=== PATIENT | male | born 1995 | race Caucasian/White ===

== ENCOUNTER 2023-05-15 08:45 | Inpatient (IN) | payer OTHER, SELFPAY ==
--- NOTE | ~2023-05-15 | CT_ITS ---
EXAMINATION: CT ABDOMEN AND PELVIS WITH CONTRAST CLINICAL INFORMATION: Diffuse abdominal pain with bloating and question of small bowel obstruction COMPARISON: None available. TECHNIQUE: Multidetector volumetric images were obtained from the superior aspect of the liver through the pubic symphysis following administration 85 mL of Omnipaque 350 intravenous contrast. Sagittal and coronal reformatted images were obtained on the technologist's workstation. Oral contrast: No This CT examination was performed using dose optimization techniques as appropriate, variously including the following: *Automated exposure control *Adjustment of mA and/or kV according to patient size (this includes techniques or standardized protocols for targeted exams where dose is matched to indication/reason for exam; i.e. extremities or head) *Use of iterative reconstruction technique DLP: 465 mGy-cm FINDINGS: LUNG BASES: The visualized lung bases are unremarkable. LIVER, GALLBLADDER, AND BILIARY TREE: The liver is normal in size, shape, and attenuation. No focal hepatic lesion or biliary ductal dilatation is present. The gallbladder is unremarkable with no evidence of radiopaque gallstones, gallbladder wall thickening, or obvious pericholecystic inflammatory changes. PANCREAS: Unremarkable. SPLEEN: Spleen is enlarged measuring 15.6 cm in greatest transverse dimension. ADRENAL GLANDS: Unremarkable. KIDNEYS AND URETERS: The kidneys are normal in size, shape, and attenuation. No hydronephrosis, hydroureter, or calculi seen. No perinephric stranding. BLADDER: Unremarkable. GASTROINTESTINAL TRACT: Moderate to large amount of stool remains in the colon. There is marked dilatation of more proximal small bowel seen with loops measuring as large as 5 cm in diameter. The distal ileal loops are all decompressed with a normal-appearing terminal ileum. In the left mid abdomen, there is a suture line seen which is probably the site of obstruction ([id number] and 5:20). A small amount of free fluid is present in the left lateral abdomen ABDOMINAL WALL: No significant hernia is appreciated. LYMPH NODES: No retroperitoneal lymphadenopathy. VASCULAR: Unremarkable. There is a circumaortic left renal vein. PELVIC VISCERA: The prostate and seminal vesicles are unremarkable. OSSEOUS STRUCTURES: Unremarkable. The SI joints appear normal. CT/CT abdomen pelvis w IV con IMPRESSION: 1. Small bowel obstruction with transition zone in the left mid abdomen. 2. Splenomegaly. Fleischner guidelines were followed.
--- NOTE | ~2023-05-15 | XR_ITS ---
EXAMINATION: XR CHEST CLINICAL INFORMATION: Small bowel obstruction. COMPARISON: None available. TECHNIQUE: Frontal view of the chest was obtained. FINDINGS: The lung volumes are relatively low. The cardiomediastinal silhouette is within normal limits. There appears to be minimal atelectasis at the left lung base. The lungs are otherwise clear. There are no significant pleural effusions. A gastric tube extends below the diaphragm into the upper abdomen. Tip of the gastric tube is not seen. Dilated small bowel loops are noted. XR/XR chest 1V IMPRESSION: Low lung volume slightly limits evaluation. There appears to be minimal atelectatic change at the left lung base. Gastric tube extends below the diaphragm into the left upper abdomen. Dilated small bowel loops seen within the upper abdomen
--- NOTE | ~2023-05-15 | XR_ITS ---
EXAMINATION: XR ABDOMEN KUB CLINICAL INDICATION: Small bowel obstruction follow-up. COMPARISON: Chest x-ray of May 15, [address] abdomen of May 15, 2023. TECHNIQUE: AP view of the abdomen. FINDINGS: Enteric catheter is seen within the stomach. There is contrast seen throughout the nondilated colon which has a moderate amount of formed stool present. No pneumatosis intestinalis is seen. There has been improvement in the small bowel dilatation compared to prior day's study. There remain some distended loops of small bowel measuring up to 5 cm in diameter. Suture line is seen within the lower left abdomen. XR/XR KUB IMPRESSION: Improvement but continued dilatation of small bowel loops. Decompressed colon.
[2023-05-15 08:59] VITALS: BP 115/71; PULSE 83; RESP 16; TEMP 36.8; O2SAT 99; BMI 25.4
--- OUTSIDE RECORDS SUMMARY | 2023-05-15 09:05 | XMS_ITS | Continuity of Care Document ---
Author Name Unknown Organization [facility] ter Address [address] [place] [phone]- Care Team Providers Care Inspector Wire Products Name Role Phone Sydnee TRIPLETT, Shane Morrison Primary Care Physician [phone] [facility]counter [facility] Date[facility]): 06/[facility] - 06/01/[address] [address]- [facility] Discharge Disposition: A-D/C Home Attending Physician: Serafin Kumar MD Admitting Physician: Serafin Kumar MD Referring Physician: Serafin Kumar MD Allergies, Adverse Reactions, Alerts Substance Reaction Severity Status NKA Active Immunizations Given and Recorded Vaccine Date Status Refusal Reason meningococcal group B vaccine 1 12/02/17 Given meningococcal group B vaccine 2 12/12/16 Given tetanus-diphtheria toxoids (Td) 3 12/02/17 Given influenza virus vaccine, inactivated 4 03/08/15 Gi vladimir influenza virus vaccine, inactivated 02/27/14 Give n influenza virus vaccine, inactivated 03/02/13 Give n influenza virus vaccine, inactivated 5 04/05/12 Gi vladimir Human Papillomavirus Vaccine 6 11/09/14 Given Human Papillomavirus Vaccine 04/27/14 Given Human Papillomavirus Vaccine 03/16/13 Given Meningococcal Conjugate Vaccine 04/27/14 Given Meningococcal Conjugate Vaccine 7 05/10/08 Given Hepatitis A Pediatric Vaccine 8 04/05/12 Given Hepatitis A Pediatric Vaccine 9, 10 03/11/12 Given hepatitis B pediatric vaccine 11 04/05/12 Given pneumococcal 23-valent vaccine 04/05/12 Given influenza virus vaccine, live 12, 13 03/11/12 Give n influenza virus vaccine, live 14 03/06/11 Given influenza virus vaccine, live 15 02/27/10 Given Hepatitis A Vaccine (oldterm) 16 02/27/10 Given influ virus vac, H1N1, live(oldterm) 17 03/21/09 G iven Tet/Diphth/Acel, Pertussis (oldterm) 18 05/10/08 G iven Poliovirus Vaccine, Inactivated 03/31/02 Given Poliovirus Vaccine, Inactivated 09/19/98 Given Poliovirus Vaccine, Inactivated 97 Given Poliovirus Vaccine, Inactivated 97 Given Diphth/Pertussis,Acel/Tetanus (oldterm) 03/31/02 G iven Diphth/Pertussis,Acel/Tetanus (oldterm) 09/19/98 G iven Diphth/Pertussis,Acel/Tetanus (oldterm) 97 G iven Diphth/Pertussis,Acel/Tetanus (oldterm) 97 G iven Diphth/Pertussis,Acel/Tetanus (oldterm) 97 G iven Measles/Mumps/Rubella Virus Vaccine 04/01/01 Given Measles/Mumps/Rubella Virus Vaccine 06/20/98 Given Haemophilus B Conj Vaccine (oldterm) 06/20/98 Give n Haemophilus B Conj Vaccine (oldterm) 97 Give n Haemophilus B Conj Vaccine (oldterm) 97 Give n Haemophilus B Conj Vaccine (oldterm) 97 Give n Varicella Virus Vaccine 04/20/98 Given Hepatitis B Vaccine (old term) 02/02/98 Given Hepatitis B Vaccine (old term) 97 Given Hepatitis B Vaccine (old term) 97 Given 1Result Comment: [12/02/2017] David Kraft MD 2Result Comment: [12/12/2016] Dr. Randhawa 3Result Comment: [12/02/2017] David Kraft MD 4Result Comment: [03/08/2015] Dr. Valle 5Admin Note: private vis given screening questions negative 6Result Comment: [11/09/2014] Ordered by Dr. Nivia Fuentes 9 7Admin Note: MENACTRA VIS 06/23/07 GIVEN 8Admin Note: vis given 2011 9Result Comment: not given 10Admin Note: VIS 08/14/05 GIVEN Hep A 11Admin Note: vis given 2011 12Result Comment: not given 13Admin Note: Private--VIS 12/19/10 given---screening questions negative 14Admin Note: VIS 12/2009 given Screening questions negative 15Admin Note: flumist vis given 01/03/10 16Admin Note: vis given 12/11/06 17Admin Note: H1N1 mist screening questions negative 18Admin Note: TDAP VIS 12/05/05 GIVEN Medications adapalene 0.1% topical gel 1 application, Topically, Daily at bedtime, # 45 Gm, 0 Refills, Maintenance, 03/03/15 12:10:04, Gel, 1 application Topically Daily at bedtime Start Date: 03/03/15 Status: Ordered clindamycin topical 1% lotion See Instructions, 1 applicator Topically Dailyin morning after washing, # 60 mL, 1 Refills, Maintenance, 03/04/15 9:22:00, 1 applicator Topically Dailyin morning after washing Start Date: 03/04/15 Status: Ordered folic acid 1 mg oral tablet 3 mg, 3, tablet, By Mouth, Every Saturday, for 30 days, # 15 tablet, Refills 6, Tot. Refills 6, Hard Stop 06/23/19 17:11:54 EST, 11/25/18 17:11:54 EDT, Route to Pharmacy Electronically, [id number], [facility]/pharmacy #[id number] Start Date: 11/25/18 Stop Date: 06/23/19 Status: Ordered folic acid 1 mg oral tablet 1 mg, 1, tablet, By Mouth, Daily, # 30 tablet, Refills 0, Tot. Refills 0, Maintenance, 11/25/18 17:13:05 EDT, Route to Pharmacy Electronically, [id number], [facility]/pharmacy #[id number] Start Date: 11/25/18 Status: Ordered Golytely - oral powder for reconstitution 240 mL, By Mouth, Every 10 minutes, # 4,000 mL, 0 Refills, Maintenance, 11/25/18 17:33:01 EDT, REC Powder, 240 mL By Mouth Every 10 minutes Start Date: 11/25/18 Status: Ordered infliximab 100 mg intravenous powder for injection = 900 mg, IV Infusion, Once, # 9 vials, 3 Refills, Soft Stop, 11/26/18 10:05:00 EDT, Ship to inpatient pharmacy at [facility] Start Date: 11/26/18 Status: Ordered methotrexate 2.5 mg oral tablet 5 tablet = 12.5 mg, By Mouth, Every week, # 65 tablet, 3 Refills, Maintenance, 05/08/19 14:16:00 EST, Tablet, 179.5, cm, 11/25/18 16:12:04 EDT, Height, 89, kg, 10/06/18 11:55:24 EDT, Dry Weight Start Date: 05/08/19 Status: Ordered Vitamin B Complex with C, Folic Acid and Zinc oral tablet 1 tablet, By Mouth, Daily, # 100 tablet, 0 Refills, Maintenance, 11/25/18 17:12:57 EDT, Tablet, 1 tablet By Mouth Daily Start Date: 11/25/18 Status: Ordered Vitamin D 18042 iu oral capsule 50,000 International_Units, 1, capsule, By Mouth, Every week, # 12 capsule, Refills 2, Tot. Refills2, Maintenance, 09/25/17 14:23:01 EDT, Route to Pharmacy Electronically, [id number], [facility][id number] Start Date: 09/25/17 Status: Ordered Vitamin D3 2000 intl units oral capsule 1 capsule = 2,000 International_Units, By Mouth, Daily, # 90 capsule, 3 Refills, Maintenance, 08/05/18 9:00:59 EDT Start Date: 08/05/18 Status: Ordered Problem List Condition Effective Dates Status Health Status Inform ant Anemia(Confirmed) Active Crohns disease(Confirmed) 1 Active Acute recurrent tonsillitis(Confirmed) Active 1s/p ileal resection in 2013 Procedures Procedure Date Related Diagnosis Body Site Status Colonoscopy 06/01/19 Completed Vital Signs Most recent to oldest [Reference Range]: 1 2 3 Height 180.3 cm (06/01/19 7:26 AM) Oxygen Saturation [94-100 %] 99 % (06/01/19 8:40 AM) 100 % (06/01/19 8:33 AM) 100 % (06/01/19 7:26 AM) Pulse Rate [55-90 bpm] 73 bpm (06/01/19 7:26 AM) Blood Pressure [90-138/55-84 mm Hg] 97/68mm Hg (06/01/19 8:40 AM) 101/65mm Hg (06/01/19 8:33 AM) 118/71mm Hg (06/01/19 7:26 AM) Respiratory Rate [16-30 br/min] 20 br/min (06/01/19 8:40 AM) 16 br/min (06/01/19 8:33 AM) 20 br/min (06/01/19 7:26 AM) Temperature [96.8-100.4 DegF] 97.7 DegF (06/01/19 7:26 AM) Mode of Delivery (Oxygen) Room air (06/01/19 8:40 AM) Room air (06/01/19 8:33 AM) Room air (06/01/19 7:26 AM) Blood pressure sites Arm, left (06/01/19 8:40 AM) Arm, left (06/01/19 8:33 AM) Arm, right (06/01/19 7:26 AM) Temperature Route Temporal (06/01/19 7:26 AM) Dry Weight 86.2 kg (06/01/19 7:26 AM) Dry Weight Obtained Via Patient/family s tated (06/01/19 7:26 AM) Social History Social History Type Response Smoking Status Never smoker; Tobacc o user in household: No entered on: 08/03/14 Sex
--- OUTSIDE RECORDS SUMMARY | 2023-05-15 09:05 | XMS_ITS | Continuity of Care Document ---
Author Name Unknown Organization [facility] ter Address [address] [place] [address]- Care Team Providers Care Gps Field Data Collector Name Role Phone Suzanne TRIPLETT, Edmar Holden Primary Care Physician [facility] Date[facility]): 09/12/21 - 02/05/[address] [id number] Attending Physician: Jefferson Ma MD Admitting Physician: Jefferson Ma MD Referring Physician: Jefferson Ma MD Allergies, Adverse Reactions, Alerts No Known Allergies Immunizations Given and Recorded Vaccine Date Status Refusal Reason influenza virus vaccine, inactivated 04/04/21 Give n influenza virus vaccine, inactivated 02/29/20 Jack rded influenza virus vaccine, inactivated 06/02/19 Give n influenza virus vaccine, inactivated 1 03/08/15 Gi vladimir influenza virus vaccine, inactivated 02/27/14 Give n influenza virus vaccine, inactivated 03/02/13 Give n influenza virus vaccine, inactivated 2 04/05/12 Gi vladimir SARS-CoV-2 (COVID-19) mRNA BNT-162b2 vac 01/16/21 Recorded SARS-CoV-2 (COVID-19) mRNA BNT-162b2 vac 07/27/20 Recorded SARS-CoV-2 (COVID-19) mRNA BNT-162b2 vac 07/05/20 Recorded meningococcal group B vaccine 3 12/02/17 Given meningococcal group B vaccine 4 12/12/16 Given tetanus-diphtheria toxoids (Td) 5 12/02/17 Given Human Papillomavirus Vaccine 6 11/09/14 Given Human [...] Vaccine (old term) 97 Given 1Result Comment: [03/08/2015] Dr. Valle 2Admin Note: private vis given screening questions negative 3Result Comment: [12/02/2017] David Kraft MD 4Result Comment: [12/12/2016] Dr. Randhawa 5Result Comment: [12/02/2017] David Kraft MD 6Result Comment: [11/09/2014] Ordered by Dr. Nivia [...] 18Admin Note: TDAP VIS 12/05/05 GIVEN Medications Remicade 100 mg intravenous powder for injection See Instructions, INFUSE 900MG INTRAVENOUSLY EVERY 6 WEEKS (GIVEN AT [facility]FUSION CLINIC, DISCARD UNUSED), # 9 each, 6 Refills, Maintenance, 03/08/21 9:14:00 EDT, [facility], 180, cm, 06/18/20 15:07:00 EST, Height, 82.5, kg, 09... Start Date: 03/08/21 Status: Ordered Vitamin D3 2000 intl units oral capsule 1 capsule = 2,000 International_Units, By Mouth, Daily, # 90 capsule, 3 Refills, Maintenance, 08/31/20 13:32:00 EDT, [id number], 180, cm, 06/18/20 15:07:00 EST, Height, 80.6, kg, 08/06/20 10:35:00 EST, Dry Weight Start Date: 08/31/20 Status: Ordered Problem List Condition Effective Dates Status Health Status Inform ant Anemia(Confirmed) Active COVID-19(Confirmed) Active Crohns disease(Confirmed) 1 Active IBD (inflammatory bowel disease)(Confirmed) Active Health care maintenance(Confirmed) Active Acute recurrent tonsillitis(Confirmed) Active 1s/p ileal resection in 2013 Social History Social History Type Response Smoking Status Never smoker; Tobacc o user in household: No entered on: 08/03/14 Sex Care Team Personnel Name: Suzanne TRIPLETT, Edmar Holden Address: [address] [place] [address]
--- OUTSIDE RECORDS SUMMARY | 2023-05-15 09:05 | XMS_ITS | Continuity of Care Document ---
Author Name Unknown Organization [facility] [address] [place] [address]- Care Team Providers Care Geographic Information Systems Manager Name Role Phone Shane Randhawa MD Primary Care Physician [phone] Encounter [facility] Date(s): 06/02/19 - 06/09/19 [facility] [address] [place] [address]- [facility] Attending Physician: Shane Randhawa MD Allergies, Adverse Reactions, Alerts Substance Reaction Severity Status NKA Active Immunizations Given and Recorded Vaccine Date Status Refusal Reason influenza virus vaccine, inactivated 06/02/19 Give n influenza virus vaccine, inactivated 1 03/08/15 Gi vladimir influenza virus vaccine, inactivated 02/27/14 Give n influenza virus vaccine, inactivated 03/02/13 Give n influenza virus vaccine, inactivated 2 04/05/12 Gi vladimir meningococcal group B vaccine 3 12/02/17 Given [...] vaccine 04/05/12 Given influenza virus vaccine, live , 13 03/11/12 Give n influenza virus vaccine, [...] 11/25/18 17:11:54 EDT, Route to Pharmacy Electronically, [id number], [facility]/pharmacy #[id number] Start Date: 11/25/18 Stop Date: 06/23/19 Status: Ordered folic acid 1 mg oral tablet 1 mg, 1, tablet, By Mouth, Daily, # 30 tablet, Refills 0, Tot. Refills 0, Maintenance, 11/25/18 17:13:05 EDT, Route to Pharmacy Electronically, [id number], [facility]/pharmacy #[id number] Start Date: 11/25/18 Status: Ordered Golytely [...] 10:05:00 EDT, Ship to inpatient pharmacy at [facility] Start Date: 11/26/18 Status: Ordered methotrexate 2.5 [...] Start Date: 11/25/18 Status: Ordered Vitamin D 59310 iu oral capsule 50,000 International_Units, 1, capsule, By Mouth, Every week, # 12 capsule, Refills 2, Tot. Refills2, Maintenance, 09/25/17 14:23:01 EDT, Route to Pharmacy Electronically, [id number], [id number] Start Date: 09/25/17 Status: Ordered Vitamin D3 2000 intl units oral capsule 1 capsule = 2,000 International_Units, By Mouth, Daily, # 90 capsule, 3 Refills, Maintenance, 08/05/18 9:00:59 EDT Start Date: 08/05/18 Status: Ordered Problem List Condition Effective Dates Status Health Status Inform ant Anemia(Confirmed) Active Crohns disease(Confirmed) 1 Active Acute recurrent tonsillitis(Confirmed) Active 1s/p ileal resection in 2013 Vital Signs Most recent to oldest [Reference Range]: 1 Height 178.7 cm (06/02/19 11:39 AM) Weight 90.9 kg (06/02/19 11:39 AM) Pulse Rate [55-90 bpm] 98 bpm *H* (06/02/19 11:39 AM) Body Mass Index [18.5-24.99] 28.47 *H* (06/02/19 11:39 AM) Blood Pressure [90-138/55-84 mm Hg] 110/ 72mm Hg (06/02/19 11:39 AM) Blood pressure sites Arm, left (06/02/19 11:39 AM) Dry Weight 90.9 kg (06/02/19 11:39 AM) Weight Obtained Via Standing scale (06/02/19 11:39 AM) Dry Weight Obtained Via Standing scale (06/02/19 11:39 AM) Social History Social History Type Response Smoking Status Never smoker; Tobacc o user in household: No entered on: 08/03/14 Sex
--- OUTSIDE RECORDS SUMMARY | 2023-05-15 09:06 | XMS_ITS | Continuity of Care Document ---
Author Name Unknown Organization [facility] Address [address] [place] [address]- Care Team Providers Care Machine Precision Engraver Name Role Phone Edmar Palacios MD Primary Care Physician Encounter [facility] Date(s): 06/04/22 - 07/04/22 [facility] [address] [place] [address]- [place] Allergies, Adverse Reactions, Alerts No Known Allergies Immunizations Given and Recorded Vaccine Date Status Refusal Reason influenza virus vaccine, inactivated 04/03/22 Jack rded influenza virus vaccine, inactivated 04/04/21 Give n influenza virus vaccine, inactivated 02/29/20 Jack rded influenza virus vaccine, inactivated 06/02/19 Give n influenza virus vaccine, inactivated 1 03/08/15 Gi vladimir influenza virus vaccine, inactivated 02/27/14 Give n influenza virus vaccine, inactivated 03/02/13 Give n influenza virus vaccine, inactivated 2 04/05/12 Gi vladimir SARS-CoV-2 mRNA ([id number]) vax 10/24/21 Recorded SARS-CoV-2 (COVID-19) mRNA BNT-162b2 vac 01/16/21 Recorded [...] injection See Instructions, INFUSE 900MG INTRAVENOUSLY EVERY 8 WEEKS (GIVEN AT INFUSION CLINIC, DISCARD UNUSED), # 9 each, 6 Refills, Maintenance, 03/14/22 9:09:00 EDT, [facility]), 180, cm, 07/22/21 13:27:00 EST, Height, 77.9,... Start Date: 03/14/22 Status: Ordered Vitamin D3 2000 intl units oral capsule 1 capsule = 2,000 International_Units, By Mouth, Daily, # 90 capsule, 3 Refills, Maintenance, 08/31/20 13:32:00 EDT, [id number], 180, cm, 06/18/20 15:07:00 EST, Height, 80.6, kg, 08/06/20 10:35:00 EST, Dry Weight Start Date: 08/31/20 Status: Ordered Problem List Condition Confirmation Course Effective Dates Status Health St atus Informant Anemia Confirmed Active COVID-19 Confirmed Active Crohns disease 1 Confirmed Active IBD (inflammatory bowel disease) Confirmed Active Health care maintenance Confirmed Active Acute recurrent tonsillitis Confirmed Active 1s/p ileal resection in 2013 Social History Social History Type Response Smoking Status Never smoker; Tobacc o user in household: No entered on: 08/03/14 Sex Patient Care team information Care Team Personnel Name: Miriam Malloy RN Position: S RN Member Role: Primary Care Nurse Name: Earline Moses RN Position: [facility] Onco RN Member Role: Primary Care Nurse Name: Edgar Benitez MD Position: [facility] General Pediatrics MD Member Role: Lifetime Consulting Physician Address: Address: [address] [facility] [place] [address]- [place] Name: Court Holliday Anabela Position: [facility] [place] Member Role: Lifetime Consulting Physician Name: Katherine Morales RN Position: [facility] RN Member Role: Primary Care Nurse Name: Soledad Freitas RN Position: [facility] RN Member Role: Primary Care Nurse Name: Raoul Sultana MD Position: [facility] General Pediatrics MD Member Role: Lifetime Consulting Physician Address: Address: [address] [facility] [place] [address]- [place] Name: Mariajose Banerjee RN Position: [facility] RN Member Role: Primary Care Nurse Name: Katie Centeno RN Position: [facility] RN Member Role: Primary Care Nurse Name: Jin Sotelo RN Position: [facility] RN Member Role: Primary Care Nurse Name: Edmar Palacios MD Position: [facility] Primary Care Physician Member Role: PCP Address: Address: [address] [place] [address]- [place] Name: Faisal Butterfield MD Position: [facility] Psychiatry MD Member Role: Lifetime Consulting Physician Address: Address: [address] [place] [address]- Care Team Related Persons Name: TERESO PARNELL Address: [address] [place] [address] Name: KELLIE PARNELL Address: [address] [place] [address] Name: RONDA PARNELL Address: [address] [place] [address] Name: UNKNOWN, UNKNOWN
--- OUTSIDE RECORDS SUMMARY | 2023-05-15 09:06 | XMS_ITS | Continuity of Care Document ---
Author Name Unknown Organization [facility] Address [address] [place] [address]- Care Team Providers Care Monumental Stonemason Name Role Phone Suzanne TRIPLETT, Edmar Holden Primary Care Physician [facility] Date[facility]s): 02/08/23 - 03/10/23 [facility] [address] [place] [address]- [place] Allergies, Adverse Reactions, Alerts No Known [...] inactivated 2 04/05/12 Gi vladimir SARS-CoV-2 mRNA (mvtpnrz-ejdy-yjave) vax 10/24/21 Recorded SARS-CoV-2 (COVID-19) mRNA BNT-162b2 [...] Hepatitis A Pediatric Vaccine 8 04/05/12 Given hepatitis B pediatric vaccine 9 04/05/12 Given pneumococcal 23-valent vaccine 04/05/12 Given influenza virus vaccine, live 10 03/06/11 Given influenza virus vaccine, live 11 02/27/10 Given Hepatitis A Vaccine (oldterm) 12 02/27/10 Given influ virus vac, H1N1, live(oldterm) 13 03/21/09 G iven Tet/Diphth/Acel, Pertussis (oldterm) 14 05/10/08 G iven Poliovirus Vaccine, Inactivated 03/31/02 [...] Nivia Fuentes 9 7Admin Note: MENACTRA VIS 1/28/08 GIVEN 8Admin Note: vis given 2011 9Admin Note: vis given 2011 10Admin Note: VIS 12/2009 given Screening questions negative 11Admin Note: flumist vis given 01/03/10 12Admin Note: vis given 12/11/06 13Admin Note: H1N1 mist screening questions negative 14Admin Note: TDAP VIS 12/05/05 GIVEN Medications Remicade 100 mg intravenous powder for injection See Instructions, INFUSE 900MG INTRAVENOUSLY EVERY 8 WEEKS (GIVEN AT [facility]ION [facility]IC, DISCARD UNUSED), # 9 each, 6 Refills, Maintenance, 03/14/22 9:09:00 EDT, [facility]), 180, cm, 07/22/21 13:27:00 EST, [...] Team Personnel Name: Miriam Malloy RN Position: [facility] RN Member Role: Primary Care Nurse Name: Edgar Bentiez MD Position: [facility] Physician - Pediatrics Member Role: Lifetime Consulting Physician Address: Address: [address] [place] [address] Pediatric Services [place], [place] [address] Name: Court Holliday [place] Position: [facility] CHRISTINA LU Member Role: Lifetime Consulting Physician Name: Katherine Morales RN Position: [facility] RN Member Role: Primary Care Nurse Name: Soledad Freitas RN Position: [facility] RN Member Role: Primary Care Nurse Name: Raoul Sultana MD Position: [facility] General Pediatrics MD Member Role: Lifetime Consulting Physician Address: Address: [address] [facility] [place] [address]- Name: Mariajsoe Banerjee RN Position: [facility] RN Member Role: Primary Care Nurse Name: Earline Jane RN Position: [facility] Onco RN Member Role: Primary Care Nurse Name: Katie Centeno RN Position: [facility] SN RN Member Role: Primary Care Nurse Name: Jin Sotelo RN Position: [facility] RN Member Role: Primary Care Nurse Name: Edmar Palacios MD Position: [facility] Physician - Primary Care Member Role: PCP Address: Address: [address] [place] [address]- Name: Faisal Butterfield MD Position: [facility] Physician - Behavioral Health Member Role: Lifetime Consulting Physician Address: Address: [address] [place] [address]- Care Team Related Persons Name: TERESO PARNELL Address: [address] [place] [address] Name: KELLIE PARNELL Address: [address] [place] [address] Name: RONDA PARNELL Address: [address] [place] [address] Name: UNKNOWN, CHELI
--- OUTSIDE RECORDS SUMMARY | 2023-05-15 09:06 | XMS_ITS | Continuity of Care Document ---
Author Name Unknown Organization [facility] Address [address] [place] [address]- Care Team Providers Care Investment Manager Name Role Phone Edmar Palacios MD Primary Care Physician [facility] Date[facility]): 11/16/20 - 12/16/20 [facility] [address] [place] [address]- Allergies, Adverse Reactions, Alerts Substance Reaction Severity [...] MD 6Result Comment: [11/09/2014] Ordered by Dr. Gonzáles Gardasicyn 9 7Admin Note: MENACTRA VIS 06/23/07 GIVEN [...] 18Admin Note: TDAP VIS 12/05/05 GIVEN Medications folic acid 1 mg oral tablet 1 mg, 1, tablet, By Mouth, Daily, # 30 tablet, Refills 0, Tot. Refills 0, Maintenance, 11/25/18 17:13:05 EDT, Route to Pharmacy Electronically, [id number], [facility]/pharmacy #[id number] Start Date: 11/25/18 Status: Ordered methotrexate 2.5 mg oral tablet 5 tablet = 12.5 mg, By Mouth, Every week, # 65 tablet, 3 Refills, Maintenance, 08/22/20 11:06:00 EDT, Tablet, [facility]/pharmacy #[id number], 180, cm, 06/18/20 15:07:00 EST, Height, 80.6, kg, 08/06/20 10:35:00 EST, Dry Weight Start Date: 08/22/20 Status: Ordered Remicade 100 mg intravenous powder for injection See Instructions, INFUSE 900MG INTRAVENOUSLY EVERY 6 WEEKS (GIVEN AT [facility]ION [facility], DISCARD UNUSED), # 9 each, 6 Refills, Maintenance, 03/08/20 10:45:00 EDT, [facility], 178.7, cm, 10/31/19 10:22:00 EDT, Height, 84.1, kg,... Start Date: 03/08/20 Status: Ordered Vitamin D 69047 iu oral capsule 50,000 International_Units, 1, capsule, By Mouth, Every week, # 12 capsule, Refills 2, Tot. Refills2, Maintenance, 09/25/17 14:23:01 EDT, Route to Pharmacy Electronically, [id number], [facility]/pharmacy #[id number] Start Date: 09/25/17 Status: Ordered Vitamin [...]
--- OUTSIDE RECORDS SUMMARY | 2023-05-15 09:06 | XMS_ITS | Continuity of Care Document ---
Author Name Unknown Organization [facility] Address [address] [place] [address]- Care Team Providers Care Microbiology Professor Name Role Phone Suzanne TRIPLETT, Edmar Holden Primary Care Physician [facility] Date[facility]s): 10/06/21 - 11/05/21 [facility] [address] [place] [address]- [place] Allergies, Adverse Reactions, Alerts No Known [...] 04/05/12 Given influenza virus vaccine, live , 03/11/12 Give n influenza virus vaccine, live [...] 6Result Comment: [11/09/2014] Ordered by Dr. Gonzáles Gardtyler 9 7Admin Note: MENACTRA VIS 06/23/07 GIVEN [...]
--- OUTSIDE RECORDS SUMMARY | 2023-05-15 09:06 | XMS_ITS | Continuity of Care Document ---
Author Name Unknown Organization [facility] Address [address] [place] [address]- Care Team Providers Care Lpn Care Manager Name Role Phone Edmar Palacios MD Primary Care Physician [phone] [facility]counter [facility] Date(s): 08/07/20 - 09/06/20 [facility] [address] [place] [address]- Allergies, Adverse Reactions, Alerts Substance Reaction Severity [...] 11/25/18 17:13:05 EDT, Route to Pharmacy Electronically, [id number], [facility]/pharmacy #[id number] Start Date: 11/25/18 Status: Ordered methotrexate 2.5 mg oral tablet 5 tablet = 12.5 mg, By Mouth, Every week, # 65 tablet, 3 Refills, Maintenance, 08/22/20 11:06:00 EDT, Tablet, [facility]/pharmacy #[id number], 180, cm, 06/18/20 15:07:00 EST, Height, [...] Start Date: 03/08/20 Status: Ordered Vitamin D 96564 iu oral capsule 50,000 International_Units, 1, capsule, By Mouth, Every week, # 12 capsule, Refills 2, Tot. Refills2, Maintenance, 09/25/17 14:23:01 EDT, Route to Pharmacy Electronically, [id number], [facility]/pharmacy #[id number] Start Date: 09/25/17 Status: Ordered Vitamin [...]
--- OUTSIDE RECORDS SUMMARY | 2023-05-15 09:06 | XMS_ITS | Continuity of Care Document ---
Author Name Unknown Organization [facility] Address [address] [place] [address]- Care Team Providers Care Notching Press Operator Name Role Phone Suzanne TRIPLETT, Edmar Holden Primary Care Physician [phone] Encounter [facility] Date(s): 11/21/21 - 12/21/21 [facility] [address] [place] [address]- [place] Allergies, Adverse Reactions, Alerts No Known [...]
--- OUTSIDE RECORDS SUMMARY | 2023-05-15 09:06 | XMS_ITS | Continuity of Care Document ---
Author Name Unknown Organization [facility] Address [address] [place] [address]- Care Team Providers Care Chief Estimator Name Role Phone Edmar Palacios MD Primary Care Physician [phone] Encounter [facility] Date(s): 03/27/21 - 04/26/21 [facility] [address] [place] [address]- Attending Physician: Marek Remy Admitting Physician: AdmtrMarek Referring Physician: Admtr, Ar8 Allergies, Adverse Reactions, Alerts Substance Reaction Severity [...] ant Anemia(Confirmed) Active Crohns disease(Confirmed) 1 Active IBD (inflammatory bowel disease)(Confirmed) Active Health care maintenance(Confirmed) Active Acute recurrent tonsillitis(Confirmed) Active 1s/p ileal resection in 2013 Procedures Procedure Date Related Diagnosis Body Site Status Tonsillectomy Completed [place] tooth extraction C ompleted Social History Social History Type Response Smoking Status Never smoker; Tobacc o user in household: No entered on: 08/03/14 Sex
--- OUTSIDE RECORDS SUMMARY | 2023-05-15 09:06 | XMS_ITS | Continuity of Care Document ---
Author Name Unknown Organization [facility] Address [address] [place] [address]- Care Team Providers Care Airport Representative Name Role Phone Suzanne TRIPLETT, Edmar Holden Primary Care Physician [phone] Encounter [facility] Date(s): 06/06/20 - 07/06/20 [facility] [address] [place] [address] Allergies, Adverse Reactions, Alerts Substance Reaction Severity [...] 18 05/10/08 G iven Poliovirus Vaccine, Inactivated 11/5/02 Given Poliovirus Vaccine, Inactivated 09/19/98 Given Poliovirus [...] 6Result Comment: [11/09/2014] Ordered by Dr. Gonzáles Gardasil 9 7Admin Note: MENACTRA VIS 06/23/07 GIVEN [...] 11/25/18 17:13:05 EDT, Route to Pharmacy Electronically, [id number], [facility]/pharmacy #[id number] Start Date: 11/25/18 Status: Ordered methotrexate 2.5 mg oral tablet 5 tablet = 12.5 mg, By Mouth, Every week, # 65 tablet, 3 Refills, Maintenance, 05/08/19 14:16:00 EST, Tablet, 179.5, cm, 11/25/18 16:12:04 EDT, Height, 89, kg, 10/06/18 11:55:24 EDT, Dry Weight Start Date: 05/08/19 Status: Ordered Remicade 100 mg intravenous powder for injection See Instructions, INFUSE 900MG INTRAVENOUSLY EVERY 6 WEEKS (GIVEN AT INFUSION CLINIC, DISCARD UNUSED), # 9 each, 6 Refills, Maintenance, 03/08/20 10:45:00 EDT, [facility], 178.7, cm, 10/31/19 10:22:00 EDT, Height, 84.1, kg,... Start Date: 03/08/20 Status: Ordered Vitamin D 37412 iu oral capsule 50,000 International_Units, 1, capsule, By Mouth, Every week, # 12 capsule, Refills 2, Tot. Refills2, Maintenance, 09/25/17 14:23:01 EDT, Route to Pharmacy Electronically, [id number], [id number] Start Date: 09/25/17 Status: Ordered Problem List Condition Effective Dates Status Health Status Inform ant Anemia(Confirmed) Active Crohns disease(Confirmed) 1 Active Acute recurrent tonsillitis(Confirmed) Active 1s/p ileal resection in 2013 Social History Social History Type Response Smoking Status Never smoker; Tobacc o user in household: No entered on: 08/03/14 Sex
--- OUTSIDE RECORDS SUMMARY | 2023-05-15 09:06 | XMS_ITS | Continuity of Care Document ---
Author Name Unknown Organization [facility] Address [address] [place] [address]- Care Team Providers Care Mine Inspector Name Role Phone Suzanne TRIPLETT, Edmar Holden Primary Care Physician [facility] Date(s): 09/12/21 - 10/12/21 [facility] [address] [place] [address]- [place] Allergies, Adverse Reactions, Alerts No Known [...]
--- OUTSIDE RECORDS SUMMARY | 2023-05-15 09:06 | XMS_ITS | Continuity of Care Document ---
Author Name Unknown Organization [facility] Address [address] [place] [address]- Care Team Providers Care Spiral Binder Name Role Phone Edmar Palacios MD Primary Care Physician [phone] [facility] Date(s): 09/12/21 - 12/11/[address] [address] Attending Physician: Jefferson Ma MD Admitting Physician: [...]
--- OUTSIDE RECORDS SUMMARY | 2023-05-15 09:06 | XMS_ITS | Continuity of Care Document ---
Author Name Unknown Organization [facility] Address [address] [place] [address]- Care Team Providers Care Regional Airline Pilot Name Role Phone Suzanne TRIPLETT, Edmar Holden Primary Care Physician Encounter [facility] Date(s): 01/12/20 - 05/11/20 [facility] [address] [place] [address]- Attending Physician: Serafin Kumar MD Admitting Physician: Serafin Kumar MD Referring Physician: Shane Randhawa MD Allergies, Adverse Reactions, [...] 02/27/10 Given Hepatitis A Vaccine (oldterm) 16 10/4/10 Given influ virus vac, H1N1, live(oldterm) 17 [...] 11/25/18 17:13:05 EDT, Route to Pharmacy Electronically, [id number], [facility]/pharmacy #[id number] Start Date: 11/25/18 Status: Ordered [...] Start Date: 03/08/20 Status: Ordered Vitamin D 39394 iu oral capsule 50,000 International_Units, 1, capsule, By Mouth, Every week, # 12 capsule, Refills 2, Tot. Refills2, Maintenance, 09/25/17 14:23:01 EDT, Route to Pharmacy Electronically, [id number], [facility]/pharmacy #[id number] Start Date: 09/25/17 Status: Ordered Problem List Condition Effective Dates Status Health Status Inform ant Anemia(Confirmed) Active Crohns disease(Confirmed) 1 Active Acute recurrent tonsillitis(Confirmed) Active 1s/p ileal resection in 2013 Social History Social History Type Response Smoking Status Never smoker; Tobacc o user in household: No entered on: 08/03/14 Sex
--- OUTSIDE RECORDS SUMMARY | 2023-05-15 09:06 | XMS_ITS | Continuity of Care Document ---
Author Name Unknown Organization [facility] Address [address] [place] [address]- Care Team Providers Care Food Preparer Name Role Phone Edmar Palacios MD Primary Care Physician [facility] Date(s): 10/01/20 - 10/31/20 [facility] [address] [place] [address]- Allergies, Adverse Reactions, Alerts Substance Reaction Severity [...] 11/25/18 17:13:05 EDT, Route to Pharmacy Electronically, [id number], [facility]/pharmacy #[id number] Start Date: 11/25/18 Status: Ordered methotrexate 2.5 mg oral tablet 5 tablet = 12.5 mg, By Mouth, Every week, # 65 tablet, 3 Refills, Maintenance, 08/22/20 11:06:00 EDT, Tablet, [facility]/pharmacy #[id number], 180, cm, 06/18/20 15:07:00 EST, [...] Start Date: 03/08/20 Status: Ordered Vitamin D 45731 iu oral capsule 50,000 International_Units, 1, capsule, By Mouth, Every week, # 12 capsule, Refills 2, Tot. Refills2, Maintenance, 09/25/17 14:23:01 EDT, Route to Pharmacy Electronically, [id number], [facility]/pharmacy #[id number] Start Date: 09/25/17 Status: Ordered [...]
--- OUTSIDE RECORDS SUMMARY | 2023-05-15 09:06 | XMS_ITS | Continuity of Care Document ---
Author Name Unknown Organization [facility] Address [address] [place] [address]- Care Team Providers Care Project Manager Entertainment And Media Name Role Phone Suzanne TRIPLETT, Edmar Holden Primary Care Physician [facility] Date(s): 04/08/23 - 05/08/23 [facility] [address] [place] [address]- [place] Allergies, Adverse Reactions, Alerts No Known [...] inactivated 2 04/05/12 Gi vladimir SARS-CoV-2 mRNA (fohvhql-noeo-xecsv) vax 10/24/21 Recorded SARS-CoV-2 (COVID-19) mRNA BNT-162b2 [...] VIS 06/23/07 GIVEN 8Admin Note: vis given 2012 9Admin Note: vis given 2011 10Admin Note: VIS 12/2009 given Screening questions negative 11Admin Note: flumist vis given 01/03/10 12Admin Note: vis given 12/11/06 13Admin Note: H1N1 mist screening questions negative 14Admin Note: TDAP VIS 12/05/05 GIVEN Medications Inflectra 100 mg intravenous injection = 900 mg, IV Infusion, Every 8 Weeks, Given at inpatient infusion unit at [facility], # 9 each, 6 Refills, Maintenance, 04/12/23 9:48:00 EST, [id number], Partial fillupon patient request if the prescription is for a s... Start Date: 04/12/23 Status: Ordered Problem List Condition Confirmation Course [...] Team Personnel Name: Miriam Malloy RN Position: [facility] RN Member Role: Primary Care Nurse Name: Edgar Benitez MD Position: [facility] Physician - Pediatrics Member Role: Lifetime Consulting Physician Address: Address: [address] [place] [address] [address] Name: Court Holliday [place] Position: [facility] CHRISTINA LU Member Role: Lifetime Consulting Physician Name: Katherine Morales RN Position: [facility] RN Member Role: Primary Care Nurse Name: Soledad Freitas RN Position: [facility] RN Member Role: Primary Care Nurse Name: Raoul Sultana MD Position: [facility] General Pediatrics MD Member Role: Lifetime Consulting Physician Name: Mariajose Banerjee RN Position: [facility] RN Member Role: Primary Care Nurse Name: Earline Jane RN Position: [facility] Onco RN Member Role: Primary Care Nurse Name: Katie Centeno RN Position: [facility] SN RN Member Role: Primary Care Nurse Name: Jin Sotelo RN Position: [facility] RN Member Role: Primary Care Nurse Name: Edmar Palacios MD Position: [facility] Physician - Primary Care Member Role: PCP Address: Address: [address] [place] [address]- [place] Name: Faisal Butterfield MD Position: [facility] Physician - Behavioral Health Member Role: Lifetime Consulting Physician Address: Address: [address] [place] [address]- Care Team Related Persons Name: TERESO PARNELL Address: [address] [place] [address] Name: KELLIE PARNELL Address: [address] [place] [address] Name: RONDA PARNELL Address: home [address] [place] [address] Name: UNKNOWN, UNKNOWN
--- OUTSIDE RECORDS SUMMARY | 2023-05-15 09:06 | XMS_ITS | Continuity of Care Document ---
Author Name Unknown Organization [facility] Address [address] [place] [address]- Care Team Providers Care Traffic Signal Supervisor Maintenance Name Role Phone Edmar Palacios MD Primary Care Physician En[place] [facility] Date(s): 06/01/22 - 07/01/22 [facility] [address] [place] [address]- [place] Allergies, Adverse Reactions, Alerts No Known [...] inactivated 2 04/05/12 Gi vladimir SARS-CoV-2 mRNA (utvsrln-gnzq-wssjc) vax 10/24/21 Recorded SARS-CoV-2 (COVID-19) mRNA BNT-162b2 [...] Maintenance, 03/14/22 9:09:00 EDT, [facility]), 180, cm, 07/22/21 13:27:00 EST, [...] Care Nurse Name: Edgar Benitez MD Position: [facility] General Pediatrics MD Member Role: Lifetime Consulting Physician Address: Address: [address] [facility] [place] [address]- [place] Name: Court Holliday Anabela Position: [facility] [place] Member Role: Lifetime Consulting Physician Name: Katherine Morales RN Position: [facility] RN Member Role: Primary Care Nurse Name: Soledad Freitas RN Position: [facility] RN Member Role: Primary Care Nurse Name: Raoul Sultana MD Position: [facility] General Pediatrics MD Member Role: Lifetime Consulting Physician Address: Address: [address] [facility] [place] [address]- [place] Name: Mariajose Banerjee RN Position: [facility] RN Member Role: Primary Care Nurse Name: Katie Centeno RN Position: [facility] RN Member Role: Primary Care Nurse Name: Jin Sotelo RN Position: [facility] RN Member Role: Primary Care Nurse Name: Edmar Palacios MD Position: [facility] Primary Care Physician Member Role: PCP Address: Address: [address] [place] [address]- [place] Name: Faisal Butterfield MD Position: [facility] Psychiatry MD Member Role: Lifetime Consulting Physician Address: Address: [address] [place] [address]- Care Team Related Persons Name: TERESO PARNELL Address: [address] [place] [address] Name: KELLIE PARNELL Address: [address] [place] [address] Name: RONDA PARNELL Address: [address] [place] [address] Name: UNKNOWN, UNKNOWN
--- OUTSIDE RECORDS SUMMARY | 2023-05-15 09:06 | XMS_ITS | Continuity of Care Document ---
Author Name Unknown Organization [facility] Address [address] [place] [address]- Care Team Providers Care Accounts Payable Coordinator Name Role Phone Suzanne TRIPLETT, Edmar Holden Primary Care Physician [facility] Date(s): 04/05/23 - 05/05/23 [facility] [address] [place] [address]- [place] Allergies, Adverse Reactions, Alerts No Known [...] inactivated 2 04/05/12 Gi vladimir SARS-CoV-2 mRNA (sfpxrmk-dsdt-eanpo) vax 10/24/21 Recorded SARS-CoV-2 (COVID-19) mRNA BNT-162b2 [...] Weeks, Given at inpatient infusion unit at [facility], # 9 each, 6 Refills, Maintenance, 04/12/23 9:48:00 EST, [id number], Partial fillupon patient request if the prescription [...] Team Personnel Name: Miriam Malloy RN Position: [facility] RN Member Role: Primary Care Nurse Name: Edgar Benitez MD Position: [facility] Physician - Pediatrics Member Role: Lifetime Consulting Physician Address: Address: [address] [place] [address] Pediatric Services [address] Name: Court Holliday [place] Position: [facility] CHRISTINA LU Member Role: Lifetime Consulting Physician Name: Katherine Morales RN Position: [facility] RN Member Role: Primary Care Nurse Name: Soledad Freitas RN Position: [facility] RN Member Role: Primary Care Nurse Name: Raoul Sultana MD Position: [facility] General Pediatrics MD Member Role: Lifetime Consulting Physician Name: Mariajose Banerjee RN Position: [facility] RN Member Role: Primary Care Nurse Name: Earline Jane RN Position: [facility] Onco RN Member Role: Primary Care Nurse Name: Katie Centeno RN Position: [facility] SN RN Member Role: Primary Care Nurse Name: Jin Sotelo RN Position: [facility] RN Member Role: Primary Care Nurse Name: Edmar Palacios MD Position: [facility] Physician - Primary Care Member Role: PCP Address: Address: [address] [place] [address]- [place] Name: Faisal Butterfield MD Position: [facility] Physician - Behavioral Health Member Role: Lifetime Consulting Physician Address: Address: [address] [place] [address]- Care Team Related Persons Name: TERESO PARNELL Address: [address] [place] [address] Name: KELLIE PARNELL Address: [address] [place] [address] Name: RONDA PARNELL Address: home [address] [place] [address] Name: UNKNOWN, UNKNOWN
--- OUTSIDE RECORDS SUMMARY | 2023-05-15 09:06 | XMS_ITS | Continuity of Care Document ---
Author Name Unknown Organization [facility] Address [address] [place] [address]- Care Team Providers Care Ordnance Mechanic Name Role Phone Suzanne TRIPLETT, Edmar Holden Primary Care Physician [facility]s): 04/05/23 - 05/05/23 [facility] [address] [place] [address]- [place] Allergies, Adverse Reactions, Alerts No Known [...] inactivated 2 04/05/12 Gi vladimir SARS-CoV-2 mRNA (spmpbvj-pcvc-hrfvz) vax 10/24/21 Recorded SARS-CoV-2 (COVID-19) mRNA BNT-162b2 [...] Weeks, Given at inpatient infusion unit at [facility], # 9 each, 6 Refills, Maintenance, 04/12/23 9:48:00 EST, [id number], Partial fillupon patient request if the prescription [...] Team Personnel Name: Miriam Malloy RN Position: [facility] RN Member Role: Primary Care Nurse Name: Edgar Benitez MD Position: [facility] Physician - Pediatrics Member Role: Lifetime Consulting Physician Address: Address: [address] [place] [address] Pediatric [address] Name: Court Holliday [place] Position: [facility] CHRISTINA LU Member Role: Lifetime Consulting Physician Name: Katherine Morales RN Position: [facility] RN Member Role: Primary Care Nurse Name: Soledad Freitas RN Position: [facility] RN Member Role: Primary Care Nurse Name: Raoul Sultana MD Position: [facility] General Pediatrics MD Member Role: Lifetime Consulting Physician Name: Mariajose Banerjee RN Position: [facility] RN Member Role: Primary Care Nurse Name: Earline Jane RN Position: [facility] Onco RN Member Role: Primary Care Nurse Name: Katie Centeno RN Position: [facility] SN RN Member Role: Primary Care Nurse Name: Jin Sotelo RN Position: [facility] RN Member Role: Primary Care Nurse Name: Edmar Palacios MD Position: [facility] Physician - Primary Care Member Role: PCP Address: Address: [address] [place] [address]- [place] Name: Faisal Butterfield MD Position: [facility] Physician - Behavioral Health Member Role: Lifetime Consulting Physician Address: Address: [address] [place] [address]- Care Team Related Persons Name: TERESO PARNELL Address: [address] [place] [address] Name: KELLIE PARNELL Address: [address] [place] [address] Name: RONDA PARNELL Address: home [address] [place] [address] Name: UNKNOWN, UNKNOWN
--- OUTSIDE RECORDS SUMMARY | 2023-05-15 09:06 | XMS_ITS | Continuity of Care Document ---
Author Name Unknown Organization [facility] Address [address] [place] [address]- Care Team Providers Care Electronic Science Teacher Name Role Phone Suzanne TRIPLETT, Edmar Holden Primary Care Physician [facility]s): 11/28/21 - 12/28/21 [facility] [address] [place] [address]- [place] Allergies, Adverse Reactions, Alerts No Known [...]
--- OUTSIDE RECORDS SUMMARY | 2023-05-15 09:06 | XMS_ITS | Continuity of Care Document ---
Author Name Unknown Organization [facility] Address [address] [place] [address]- Care Team Providers Care Senior Health Educator Name Role Phone Suzanne TRIPLETT, Edmar Holden Primary Care Physician En[place] [facility] Date(s): 05/15/22 - 09/12/22 [facility] [address] [place] [address]- Attending Physician: Jefferson Ma MD Admitting Physician: Jefferson Ma MD Referring Physician: Edmar Palacios MD Allergies, Adverse Reactions, Alerts No Known [...] inactivated 2 04/05/12 Gi vladimir SARS-CoV-2 mRNA (difzvtl-yvju-tksta) vax 10/24/21 Recorded SARS-CoV-2 (COVID-19) mRNA BNT-162b2 [...] Maintenance, 03/14/22 9:09:00 EDT, [facility]), 180, cm, 07/22/21 13:27:00 EST, [...] Care Nurse Name: Edgar Benitez MD Position: [facility] General Pediatrics MD Member Role: Lifetime Consulting Physician Address: Address: [address] [facility] [place] [address]- [place] Name: Court Holliday [place] Position: [facility] CHRISTINA LU Member Role: Lifetime Consulting Physician Name: Katherine Morales RN Position: [facility] RN Member Role: Primary Care Nurse Name: Soledad Freitas RN Position: [facility] RN Member Role: Primary Care Nurse Name: Raoul Sultana MD Position: [facility] General Pediatrics MD Member Role: Lifetime Consulting Physician Address: Address: [address] [facility] [place] [address]- [place] Name: Mariajose Banerjee RN Position: [facility] RN Member Role: Primary Care Nurse Name: Earline Jane RN Position: [facility] Onco RN Member Role: Primary Care Nurse Name: Jin Sotelo RN Position: [facility] RN Member Role: Primary Care Nurse Name: Edmar Palacios MD Position: [facility] Primary Care Physician Member Role: PCP Address: Address: [address] [place] [address]- [place] Name: Faisal Butterfield MD Position: [facility] Psychiatry MD Member Role: Lifetime Consulting Physician Address: Address: [address] [place] [address]- [place] Care Team Related Persons Name: TERESO PARNELL Address: [address] [place] [address] Name: KELLIE PARNELL Address: [address] [place] [address] Name: RONDA PARNELL Address: [address] [place] [address] Name: UNKNOWN, UNKNOWN
--- OUTSIDE RECORDS SUMMARY | 2023-05-15 09:06 | XMS_ITS | Continuity of Care Document ---
Author Name Unknown Organization [facility] Address [address] [place] [address]- Care Team Providers Care Dynamite Packing Machine Operator Name Role Phone Edmar Palacios MD Primary Care Physician [facility]): [facility]/20 - 12/10/20 [facility] [address] [place] [address]- Allergies, Adverse Reactions, Alerts Substance Reaction Severity [...] given screening questions negative 3Result Comment: [12/02/2017] Daivd Kraft MD 4Result Comment: [12/12/2016] Dr. Randhawa [...] 11/25/18 17:13:05 EDT, Route to Pharmacy Electronically, [id number], [facility]/pharmacy #[id number] Start Date: 11/25/18 Status: Ordered methotrexate 2.5 mg oral tablet 5 tablet = 12.5 mg, By Mouth, Every week, # 65 tablet, 3 Refills, Maintenance, 08/22/20 11:06:00 EDT, Tablet, [facility]/pharmacy #[id number], 180, cm, 06/18/20 15:07:00 EST, Height, [...] Start Date: 03/08/20 Status: Ordered Vitamin D 90354 iu oral capsule 50,000 International_Units, 1, capsule, By Mouth, Every week, # 12 capsule, Refills 2, Tot. Refills2, Maintenance, 09/25/17 14:23:01 EDT, Route to Pharmacy Electronically, [id number], [facility]/pharmacy #[id number] Start Date: 09/25/17 Status: Ordered Vitamin [...]
--- OUTSIDE RECORDS SUMMARY | 2023-05-15 09:06 | XMS_ITS | Continuity of Care Document ---
Author Name Unknown Organization [facility] Address [address] [place] [address]- Care Team Providers Care Automotive Specialty Technician Name Role Phone Edmar Palacios MD Primary Care Physician [place] [facility] [place]20 - 08/04/20 [facility] [address] [place] [address]- Attending Physician: Serafin Kumar MD Admitting Physician: Serafin Kumar MD Referring Physician: Edmar Palacios MD Allergies, Adverse Reactions, Alerts Substance Reaction [...] 11/25/18 17:13:05 EDT, Route to Pharmacy Electronically, [id number], [facility]/pharmacy #[id number] Start Date: 11/25/18 Status: Ordered [...] Start Date: 03/08/20 Status: Ordered Vitamin D 54957 iu oral capsule 50,000 International_Units, 1, capsule, By Mouth, Every week, # 12 capsule, Refills 2, Tot. Refills2, Maintenance, 09/25/17 14:23:01 EDT, Route to Pharmacy Electronically, [id number], [facility]/pharmacy #[id number] Start Date: 09/25/17 Status: Ordered Problem List Condition Effective Dates Status Health Status Inform ant Anemia(Confirmed) Active Crohns disease(Confirmed) 1 Active Acute recurrent tonsillitis(Confirmed) Active 1s/p ileal resection in 2013 Social History Social History Type Response Smoking Status Never smoker; Tobacc o user in household: No entered on: 08/03/14 Sex
--- OUTSIDE RECORDS SUMMARY | 2023-05-15 09:06 | XMS_ITS | Continuity of Care Document ---
Author Name Unknown Organization [facility] Address [address] [place] [address]- Care Team Providers Care Honing Machine Operator Name Role Phone Suzanne TRIPLETT, Edmar Holden Primary Care Physician [phone] [facility]counter [facility] Date[facility]s): 08/20/22 - 09/19/22 [facility] [address] [place] [address]- [place] Allergies, Adverse Reactions, Alerts No Known [...] inactivated 2 04/05/12 Gi vladimir SARS-CoV-2 mRNA (iimbfif-gudq-vkqlt) vax 10/24/21 Recorded SARS-CoV-2 (COVID-19) mRNA BNT-162b2 [...] Maintenance, 03/14/22 9:09:00 EDT, [facility]), 180, cm, 07/22/21 13:27:00 EST, [...] Team Personnel Name: Miriam Malloy RN Position: [facility] RN Member Role: Primary Care Nurse Name: Emmanuel TRIPLETT, Edgar Bond Position: [facility] General Pediatrics MD Member Role: Lifetime Consulting Physician Address: Address: [address] [place] [address] [place] [address]- [place] Name: Mg TABITHACourt Position: [facility] [place] Member Role: Lifetime Consulting Physician Name: Katherine Morales RN Position: [facility] RN Member Role: Primary Care Nurse Name: Soledad Freitas RN Position: [facility] RN Member Role: Primary Care Nurse Name: Raoul Sultana MD Position: [facility] General Pediatrics MD Member Role: Lifetime Consulting Physician Address: Address: [address] [place] [address] [place] [address]- [place] Name: Mariajose Banerjee RN Position: [facility] RN Member Role: Primary Care Nurse Name: Earline Jane RN Position: [facility] Onco RN Member Role: Primary Care Nurse Name: Jin Sotelo RN Position: [facility] RN Member Role: Primary Care Nurse Name: Edmar Palacios MD Position: [facility] Primary Care Physician Member Role: PCP Address: Address: [address] [place] [address]- [place] Name: Faisal Butterfield MD Position: [facility] Psychiatry MD Member Role: Lifetime Consulting Physician Address: Address: [address] [place] [address]- Care Team Related Persons Name: TERESO PARNELL Address: [address] [place] [address] Name: KELLIE PARNELL Address: [address] [place] [address] Name: RONDA PARNELL Address: [address] [place] [address] Name: UNKNOWN, UNKNOWN
--- OUTSIDE RECORDS SUMMARY | 2023-05-15 09:06 | XMS_ITS | Continuity of Care Document ---
Author Name Unknown Organization [facility] Address [address] [place] [address]- Care Team Providers Care Sql Server Dba Name Role Phone Sydnee TRIPLETT, Shane Morrison Primary Care Physician [facility]s): 01/11/20 - 02/10/20 [facility] [address] [place] [address]- [facility] Allergies, Adverse Reactions, Alerts Substance Reaction Severity [...] 11/25/18 17:13:05 EDT, Route to Pharmacy Electronically, [id number], [facility]/pharmacy #[id number] Start Date: 11/25/18 Status: Ordered methotrexate [...] [facility], DISCARD UNUSED), # 9 each, 3 Refills, Maintenance, 08/03/19 9:15:00 EDT, [facility], 178.7, cm, 06/02/19 11:39:00 EST, Height, 90.9, kg,... Start Date: 08/03/19 Status: Ordered Vitamin D 91008 iu oral capsule 50,000 International_Units, 1, capsule, By Mouth, Every week, # 12 capsule, Refills 2, Tot. Refills2, Maintenance, 09/25/17 14:23:01 EDT, Route to Pharmacy Electronically, [id number], [facility]/pharmacy #[id number] Start Date: 09/25/17 Status: Ordered Problem List Condition Effective Dates Status Health Status Inform ant Anemia(Confirmed) Active Crohns disease(Confirmed) 1 Active Acute recurrent tonsillitis(Confirmed) Active 1s/p ileal resection in 2013 Social History Social History Type Response Smoking Status Never smoker; Tobacc o user in household: No entered on: 08/03/14 Sex
--- OUTSIDE RECORDS SUMMARY | 2023-05-15 09:07 | XMS_ITS | Continuity of Care Document ---
Author Name Unknown Organization [facility] Address [address] [place] [address]- Care Team Providers Care Biodiesel Production Associate Name Role Phone Suzanne TRIPLETT, Edmar Holden Primary Care Physician [facility] Date[facility]s): 12/06/21 - 01/05/22 [facility] [address] [place] [address]- [place] Allergies, Adverse Reactions, Alerts No Known [...]
--- OUTSIDE RECORDS SUMMARY | 2023-05-15 09:07 | XMS_ITS | Continuity of Care Document ---
Author Name Unknown Organization [facility] Address [address] [place] [address]- Care Team Providers Care Branch Retail Executive Name Role Phone Suzanne TRIPLETT, Edmar Holden Primary Care Physician [phone] [facility]counter [facility] Date(s): 10/30/21 - 11/29/21 [facility] [address] [place] [address]- [place] Allergies, Adverse Reactions, Alerts No Known [...]
--- OUTSIDE RECORDS SUMMARY | 2023-05-15 09:07 | XMS_ITS | Continuity of Care Document ---
Author Name Unknown Organization [facility] Address [address] [place] [address]- Care Team Providers Care Sales Training Manager Name Role Phone Suzanne TRIPLETT, Edmar Holden Primary Care Physician [phone] [facility]counter [facility] Date(s): 11/22/21 - 12/22/21 [facility] [address] [place] [address]- [place] Allergies, Adverse Reactions, Alerts No Known [...]
--- OUTSIDE RECORDS SUMMARY | 2023-05-15 09:07 | XMS_ITS | Continuity of Care Document ---
Author Name Unknown Organization [facility] Address [address] [place] [address]- Care Team Providers Care Debrander Name Role Phone Edmar Palacios MD Primary Care Physician [facility] Date(s): 03/28/20 - 03/29/[address] [address]- [facility] Attending Physician: Edmar Palacios MD Allergies, Adverse Reactions, [...] 11/25/18 17:13:05 EDT, Route to Pharmacy Electronically, [id number], [facility]/pharmacy #[id number] Start Date: 11/25/18 Status: Ordered methotrexate [...] Start Date: 03/08/20 Status: Ordered Vitamin D 14199 iu oral capsule 50,000 International_Units, 1, capsule, By Mouth, Every week, # 12 capsule, Refills 2, Tot. Refills2, Maintenance, 09/25/17 14:23:01 EDT, Route to Pharmacy Electronically, [id number], [facility]/pharmacy #[id number] Start Date: 09/25/17 Status: Ordered Problem List Condition Effective Dates Status Health Status Inform ant Anemia(Confirmed) Active Crohns disease(Confirmed) 1 Active Acute recurrent tonsillitis(Confirmed) Active 1s/p ileal resection in 2013 Social History Social History Type Response Smoking Status Never smoker; Tobacc o user in household: No entered on: 08/03/14 Sex
--- OUTSIDE RECORDS SUMMARY | 2023-05-15 09:07 | XMS_ITS | Continuity of Care Document ---
Author Name Unknown Organization [facility] Address [address] [place] [address]- Care Team Providers Care Business Analyst Ecommerce Name Role Phone Suzanne TRIPLETT, Edmar Holden Primary Care Physician [facility] Date(s): 11/02/22 - 12/02/22 [facility] [address] [place] [address]- [place] Allergies, Adverse Reactions, Alerts No Known [...] inactivated 2 04/05/12 Gi vladimir SARS-CoV-2 mRNA (twdnlak-qcuu-lanvi) vax 10/24/21 Recorded SARS-CoV-2 (COVID-19) mRNA BNT-162b2 [...] Maintenance, 03/14/22 9:09:00 EDT, [facility] ([facility]), 180, cm, 07/22/21 13:27:00 EST, [...] Team Personnel Name: Miriam Malloy RN Position: [facility] RN Member Role: Primary Care Nurse Name: Emmanuel TRIPLETT, Edgar Bond Position: [facility] Physician - Pediatrics Member Role: Lifetime Consulting Physician Address: Address: [address] [place] [address] [place] [address]- [place] Name: Mg TABITHA Court Peñaloza Position: [facility] AMB [place] Member Role: Lifetime Consulting Physician Name: Katherine Morales RN Position: [facility] RN Member Role: Primary Care Nurse Name: Soledad Freitas RN Position: [facility] RN Member Role: Primary Care Nurse Name: Raoul Sultana MD Position: [facility] General Pediatrics MD Member Role: Lifetime Consulting Physician Address: Address: [address] [place] [address] Pediatric [place] [address]- [place] Name: Earline Jane RN Position: [facility] Onco RN Member Role: Primary Care Nurse Name: Jin Sotelo RN Position: [facility] RN Member Role: Primary Care Nurse Name: Edmar Palacios MD Position: [facility] Physician - Primary Care Member Role: PCP Address: Address: [address] [place] [address]- [place] Name: Faisal Butterfield MD Position: [facility] Physician - Behavioral Health Member Role: Lifetime Consulting Physician Address: Address: [address] [place] [address]- Care Team Related Persons Name: TERESO PARNELL Address: [address] [place] [address] Name: KELLIE PARNELL Address: [address] [place] [address] Name: RONDA PARNELL Address: [address] [place] [address] Name: UNKNOWN, UNKNOWN
--- OUTSIDE RECORDS SUMMARY | 2023-05-15 09:07 | XMS_ITS | Continuity of Care Document ---
Author Name Unknown Organization [facility] ter Address [address] [place] [address]- Care Team Providers Care Pool Cleaner Name Role Phone Shane Randhawa MD Primary Care Physician [facility] 06[facility]/19 - 06/02/[address] [address]- [facility] Attending Physician: Shane Randhawa MD Allergies, [...] Given influ virus vac, H1N1, live(oldterm) 17 10/26/09 G iven Tet/Diphth/Acel, Pertussis (oldterm) 18 05/10/08 [...] 11/25/18 17:11:54 EDT, Route to Pharmacy Electronically, [id number], [facility]/pharmacy #[id number] Start Date: 11/25/18 Stop Date: 06/23/19 Status: Ordered folic acid 1 mg oral tablet 1 mg, 1, tablet, By Mouth, Daily, # 30 tablet, Refills 0, Tot. Refills 0, Maintenance, 11/25/18 17:13:05 EDT, Route to Pharmacy Electronically, [id number], [facility]/pharmacy #[id number] Start Date: 11/25/18 Status: Ordered Golytely [...] 10:05:00 EDT, Ship to inpatient pharmacy at [facility] Start Date: 11/26/18 Status: Ordered methotrexate [...] Start Date: 11/25/18 Status: Ordered Vitamin D 57501 iu oral capsule 50,000 International_Units, 1, capsule, By Mouth, Every week, # 12 capsule, Refills 2, Tot. Refills2, Maintenance, 09/25/17 14:23:01 EDT, Route to Pharmacy Electronically, [id number], [facility]/pharmacy #[id number] Start Date: 09/25/17 Status: Ordered [...]
--- OUTSIDE RECORDS SUMMARY | 2023-05-15 09:07 | XMS_ITS | Continuity of Care Document ---
Author Name Unknown Organization [facility] Address [address] [place] [address]- Care Team Providers Care Conveyor Installer Name Role Phone Suzanne TRIPLETT, Edmar Holden Primary Care Physician [phone] [facility]s): 06/21/20 - 07/21/20 [facility] [address] [place] [address] Attending Physician: AdmMarek londono Admitting Physician: AdmtrMarek Referring Physician: Admtr, Ar8 [...] 11/25/18 17:13:05 EDT, Route to Pharmacy Electronically, [id number], [facility]/pharmacy #[id number] Start Date: 11/25/18 Status: Ordered [...] Start Date: 03/08/20 Status: Ordered Vitamin D 86207 iu oral capsule 50,000 International_Units, 1, capsule, By Mouth, Every week, # 12 capsule, Refills 2, Tot. Refills2, Maintenance, 09/25/17 14:23:01 EDT, Route to Pharmacy Electronically, [id number], [facility]/pharmacy #[id number] Start Date: 09/25/17 Status: Ordered Problem List Condition Effective Dates Status Health Status Inform ant Anemia(Confirmed) Active Crohns disease(Confirmed) 1 Active Acute recurrent tonsillitis(Confirmed) Active 1s/p ileal resection in 2013 Social History Social History Type Response Smoking Status Never smoker; Tobacc o user in household: No entered on: 08/03/14 Sex
--- OUTSIDE RECORDS SUMMARY | 2023-05-15 09:07 | XMS_ITS | Continuity of Care Document ---
Author Name Unknown Organization [facility] [address] [place] [address]- Care Team Providers Care International Bank Manager Name Role Phone Sydnee TRIPLETT, Shane Morrison Primary Care Physician Encounter [facility] Date(s): 10/16/19 - 10/23/19 [facility] [address] [place] [address]- [facility] Attending Physician: Not on Staff, Attending MD Allergies, Adverse Reactions, Alerts Substance Reaction [...] 11/25/18 17:13:05 EDT, Route to Pharmacy Electronically, [id number], [facility]/pharmacy #[id number] Start Date: 11/25/18 Status: Ordered Golytely [...] 10:05:00 EDT, Ship to inpatient pharmacy at [facility] Start Date: 11/26/18 Status: Ordered methotrexate 2.5 [...] each, 3 Refills, Maintenance, 08/03/19 9:15:00 EDT, [facility], 178.7, cm, 06/02/19 11:39:00 EST, Height, 90.9, kg,... Start Date: 08/03/19 Status: Ordered Vitamin B Complex with C, Folic Acid and Zinc oral tablet 1 tablet, By Mouth, Daily, # 100 tablet, 0 Refills, Maintenance, 11/25/18 17:12:57 EDT, Tablet, 1 tablet By Mouth Daily Start Date: 11/25/18 Status: Ordered Vitamin D 52472 iu oral capsule 50,000 International_Units, 1, capsule, By Mouth, Every week, # 12 capsule, Refills 2, Tot. Refills2, Maintenance, 09/25/17 14:23:01 EDT, Route to Pharmacy Electronically, [id number], [facility]/pharmacy #[id number] Start Date: 09/25/17 Status: Ordered Vitamin [...]
--- OUTSIDE RECORDS SUMMARY | 2023-05-15 09:07 | XMS_ITS | Continuity of Care Document ---
Author Name Unknown Organization [facility] Address [address] [place] [address]- Care Team Providers Care Wire Sawyer Name Role Phone Edmar Palacios MD Primary Care Physician [facility](s): 08/18/20 - 09/17/20 [facility] [address] [place] [address]- Allergies, Adverse Reactions, Alerts Substance Reaction Severity [...] 11/25/18 17:13:05 EDT, Route to Pharmacy Electronically, [id number], [facility]/pharmacy #[id number] Start Date: 11/25/18 Status: Ordered methotrexate 2.5 mg oral tablet 5 tablet = 12.5 mg, By Mouth, Every week, # 65 tablet, 3 Refills, Maintenance, 08/22/20 11:06:00 EDT, Tablet, [facility]/pharmacy #[id number], 180, cm, 06/18/20 15:07:00 [...] Start Date: 03/08/20 Status: Ordered Vitamin D 13488 iu oral capsule 50,000 International_Units, 1, capsule, By Mouth, Every week, # 12 capsule, Refills 2, Tot. Refills2, Maintenance, 09/25/17 14:23:01 EDT, Route to Pharmacy Electronically, [id number], [facility]/pharmacy #[id number] Start Date: 09/25/17 Status: [...]
--- OUTSIDE RECORDS SUMMARY | 2023-05-15 09:07 | XMS_ITS | Continuity of Care Document ---
Author Name Unknown Organization [facility] Address [address] [place] [address]- Care Team Providers Care Data Operations Leader Name Role Phone Edmar Palacios MD Primary Care Physician [facility]s): 10/22/20 - 11/21/20 [facility] [address] [place] [address]- Allergies, Adverse Reactions, Alerts Substance Reaction Severity [...] 11/25/18 17:13:05 EDT, Route to Pharmacy Electronically, [id number], [facility]/pharmacy #[id number] Start Date: 11/25/18 Status: Ordered methotrexate 2.5 mg oral tablet 5 tablet = 12.5 mg, By Mouth, Every week, # 65 tablet, 3 Refills, Maintenance, 08/22/20 11:06:00 EDT, Tablet, [facility]/pharmacy #[id number], 180, cm, 06/18/20 15:07:00 [...] Start Date: 03/08/20 Status: Ordered Vitamin D 72339 iu oral capsule 50,000 International_Units, 1, capsule, By Mouth, Every week, # 12 capsule, Refills 2, Tot. Refills2, Maintenance, 09/25/17 14:23:01 EDT, Route to Pharmacy Electronically, [id number], [facility]/pharmacy #[id number] Start Date: 09/25/17 Status: [...]
--- OUTSIDE RECORDS SUMMARY | 2023-05-15 09:07 | XMS_ITS | Continuity of Care Document ---
Author Name Unknown Organization [facility] Address [address] [place] [address]- Care Team Providers Care Earring Maker Name Role Phone Edmar Palacios MD Primary Care Physician [facility](s): 02/14/22 - 03/16/22 [facility] [address] [place] [address]- [place] Allergies, Adverse Reactions, Alerts No Known [...] [12/12/2016] Dr. Randhawa 5Result Comment: [12/02/2017] David Krfat MD 6Result Comment: [11/09/2014] Ordered by Dr. [...] Maintenance, 03/14/22 9:09:00 EDT, [facility]), 180, cm, 07/22/21 13:27:00 EST, [...] on: 08/03/14 Sex Patient Care team information Personnel Name: Suzanne TRIPLETT, Edmar Holden Address: Address: [address] [place] [address]
--- OUTSIDE RECORDS SUMMARY | 2023-05-15 09:07 | XMS_ITS | Continuity of Care Document ---
Author Name Unknown Organization [facility] Address [address] [place] [address]- Care Team Providers Care Geosciences Professor Name Role Phone Suzanne TRIPLETT, Edmar Holden Primary Care Physician [facility]): 06/16/20 - 07/16/20 [facility] [address] [place] [address] Allergies, Adverse Reactions, Alerts Substance Reaction [...] 11/25/18 17:13:05 EDT, Route to Pharmacy Electronically, [id number], [facility]/pharmacy #[id number] Start Date: 11/25/18 Status: [...] Start Date: 03/08/20 Status: Ordered Vitamin D 57660 iu oral capsule 50,000 International_Units, 1, capsule, By Mouth, Every week, # 12 capsule, Refills 2, Tot. Refills2, Maintenance, 09/25/17 14:23:01 EDT, Route to Pharmacy Electronically, [id number], [facility][id number] Start Date: 09/25/17 Status: Ordered Problem List Condition Effective Dates Status Health Status Inform ant Anemia(Confirmed) Active Crohns disease(Confirmed) 1 Active Acute recurrent tonsillitis(Confirmed) Active 1s/p ileal resection in 2013 Social History Social History Type Response Smoking Status Never smoker; Tobacc o user in household: No entered on: 08/03/14 Sex
--- OUTSIDE RECORDS SUMMARY | 2023-05-15 09:07 | XMS_ITS | Continuity of Care Document ---
Author Name Unknown Organization [facility] Address [address] [place] [address]- Care Team Providers Care Supervisor [employer] Name Role Phone Edmar Palacios MD Primary Care Physician [phone] [facility]): 11/16/20 - 12/16/20 [facility] [address] [place] [address]- Allergies, Adverse Reactions, Alerts Substance Reaction Severity [...] 11/25/18 17:13:05 EDT, Route to Pharmacy Electronically, [id number], [facility]/pharmacy #[id number] Start Date: 11/25/18 Status: Ordered methotrexate 2.5 mg oral tablet 5 tablet = 12.5 mg, By Mouth, Every week, # 65 tablet, 3 Refills, Maintenance, 08/22/20 11:06:00 EDT, Tablet, [facility]/pharmacy #[id number], 180, cm, 06/18/20 15:07:00 [...] Start Date: 03/08/20 Status: Ordered Vitamin D 89620 iu oral capsule 50,000 International_Units, 1, capsule, By Mouth, Every week, # 12 capsule, Refills 2, Tot. Refills2, Maintenance, 09/25/17 14:23:01 EDT, Route to Pharmacy Electronically, [id number], [facility]/pharmacy #[id number] Start Date: 09/25/17 Status: [...]
--- OUTSIDE RECORDS SUMMARY | 2023-05-15 09:07 | XMS_ITS | Continuity of Care Document ---
Author Name Unknown Organization [facility] Address [address] [place] [id number]- Care Team Providers Care Roving Department Supervisor Name Role Phone Suzanne TRIPLETT, Edmar Holden Primary Care Physician [facility] Date[facility]s): 04/05/23 - 05/05/23 [facility] [address] [place] [id number]- [place] Allergies, Adverse Reactions, Alerts No Known [...] inactivated 2 04/05/12 Gi vladimir SARS-CoV-2 mRNA ([id number]) vax 10/24/21 Recorded SARS-CoV-2 (COVID-19) mRNA BNT-162b2 [...] Weeks, Given at inpatient infusion unit at [facility], # 9 each, 6 Refills, Maintenance, 04/12/23 9:48:00 EST, [id number], Partial fillupon patient request if the prescription [...] Team Personnel Name: Miriam Malloy RN Position: [facility] RN Member Role: Primary Care Nurse Name: Edgar Benitez MD Position: [facility] Physician - Pediatrics Member Role: Lifetime Consulting Physician Address: Address: [address] [place] [address] [address] Name: Court Holliday [place] Position: [facility] CHRISTINA LU Member Role: Lifetime Consulting Physician Name: Katherine Morales RN Position: [facility] RN Member Role: Primary Care Nurse Name: Soledad Freitas RN Position: [facility] RN Member Role: Primary Care Nurse Name: Raoul Sultana MD Position: [facility] General Pediatrics MD Member Role: Lifetime Consulting Physician Name: Mariajose Banerjee RN Position: [facility] RN Member Role: Primary Care Nurse Name: Earline Jane RN Position: [facility] Onco RN Member Role: Primary Care Nurse Name: Katie Centeno RN Position: [facility] SN RN Member Role: Primary Care Nurse Name: Jin Sotelo RN Position: [facility] RN Member Role: Primary Care Nurse Name: Edmar Palacios MD Position: [facility] Physician - Primary Care Member Role: PCP Address: Address: [address] [place] [address]- [place] Name: Faisal Butterfield MD Position: [facility] Physician - Behavioral Health Member Role: Lifetime Consulting Physician Address: Address: [address] [place] [address]- Care Team Related Persons Name: TERESO PARNELL Address: [address] [place] [address] Name: KELLIE PARNELL Address: [address] [place] [address] Name: RONDA PARNELL Address: home [address] [place] [address] Name: UNKNOWN, UNKNOWN
--- OUTSIDE RECORDS SUMMARY | 2023-05-15 09:07 | XMS_ITS | Continuity of Care Document ---
Author Name Unknown Organization [facility] Address [address] [place] [id number]- Care Team Providers Care Terminal Supervisor Name Role Phone Suzanne TRIPLETT, Edmar Holden Primary Care Physician [facility] Date[facility]s): 11/02/21 - 12/02/21 [facility] [address] [place] [id number]- [place] Allergies, Adverse Reactions, Alerts No Known [...] 6Result Comment: [11/09/2014] Ordered by Dr. Gonzáles Gardytler 9 7Admin Note: MENACTRA VIS 06/23/07 GIVEN [...]
--- OUTSIDE RECORDS SUMMARY | 2023-05-15 09:07 | XMS_ITS | Continuity of Care Document ---
Author Name Unknown Organization [facility] Address [address] [place] [address]- Care Team Providers Care Is Consultant Name Role Phone Suzanne TRIPLETT, Edmar Holden Primary Care Physician [phone] Encounter [facility] Date(s): 03/23/20 - 07/21/20 [facility] [address] [place] [id number] Attending Physician: Serafin Kumar MD Admitting Physician: [...] 11/25/18 17:13:05 EDT, Route to Pharmacy Electronically, [id number], [facility]/pharmacy #[id number] Start Date: 11/25/18 [...] Start Date: 03/08/20 Status: Ordered Vitamin D 40132 iu oral capsule 50,000 International_Units, 1, capsule, By Mouth, Every week, # 12 capsule, Refills 2, Tot. Refills2, Maintenance, 09/25/17 14:23:01 EDT, Route to Pharmacy Electronically, [id number], [facility]/pharmacy #[id number] Start Date: 09/25/17 Status: Ordered Problem List Condition Effective Dates Status Health Status Inform ant Anemia(Confirmed) Active Crohns disease(Confirmed) 1 Active Acute recurrent tonsillitis(Confirmed) Active 1s/p ileal resection in 2013 Social History Social History Type Response Smoking Status Never smoker; Tobacc o user in household: No entered on: 08/03/14 Sex
--- NOTE | 2023-05-15 09:48 | ED.ABDPAIN ---
HPI - Abdominal Pain General Chief Complaint: Abdominal Pain Stated Complaint: Stomach Pain Time Seen by Provider: 05/15/23 08:49 Source: patient and family (Father, Edwar) Mode of arrival: ambulatory Limitations: no limitations History of Present Illness HPI narrative: 28-year-old male with history of Crohn's disease with perforated bowel 2013 who presents to the emergency department for evaluation 1 week of loose stools which have improved, abdominal pain, abdominal distension, nausea with no vomiting. Patient states that he was getting Remicade (infliximab) every 8 weeks and 2 weeks prior he received a different brand, Inflectra(infliximab). He states that last week he had 5-6 loose, brown to dark stools per day with no blood or mucus in the stools he states. Over the last several days his diarrhea has resolved but he has small stools that are not like his normal formed stools. He states that he has diffuse abdominal pain which he describes as a bloated/cramping sensation, worse after eating. He is passing gas. He states he feels very lethargic . He denied fever but he states he has had chills and night sweats. He denied sore throat, cough, chest pain, shortness of breath. He denied frequency, urgency or dysuria. He states he does have myalgias and arthralgias. Patient states that his pain was 8/10 at its worse and is currently 6/10 in the emergency department. Patient's GI doctor is Dr. Jefferson Ma at [facility]. Related Data Home Medications Medication Instructions Recorded Confirmed infliximab-dyyb 100 mg intravenous mg IV 05/15/23 solution (Inflectra) Allergies Allergy/AdvReac Type Severity Reaction Status Date / Time No Known Allergies Allergy Verified 05/15/23 09:09 Review of Systems Review of Systems Yes all other systems are reviewed and are negative [facility] Past Medical History [facility] Narrative: Social history: He denies tobacco use. He states he drinks alcohol on the weekends but has not had any alcohol to drink for over a week. Denies drug use. Medical History (Updated 05/15/23 @ 15:51 by Gregory Espinosa MD) Crohn's disease Social History Social History Smoked in Last 30 Days: No Use of substances other than those prescribed or required for medical reasons: No Advance Directives: No Physical Exam ED Vital Signs: Vital Signs - 24 hr 05/15/23 08:59 05/15/23 11:03 05/15/23 14:09 Temperature 98.3 F 97.9 F Pulse Rate 83 63 63 Respiratory Rate 16 16 16 Blood Pressure 115/71 101/58 L 105/45 L Pulse Oximetry 99 100 97 Oxygen Delivery Method Room Air Room Air Room Air BMI result Body Mass Index 25.4 Vital signs were normal Exam: General: Awake, alert in no distress Head: Normocephalic, atraumatic EENT: PERRL, Lids normal, sclera normal, conjunctiva normal, nose normal , ears normal, throat without erythema or exudates Neck: Supple, no adenopathy, no trachea midline or C-spine tenderness Lung: breath sounds symmetric, no wheezing, rales or rhonchi Chest: symmetric movement, nontender Heart: regular rate and rhythm, normal S1, S2 no murmurs or rubs Abdomen: soft, mild to moderate diffuse tenderness with no localizing tenderness, no rebound, no voluntary or involuntary guarding, mild distended, diminished bowel sound Back: no vertebral tenderness, no CVAT Extremities: no deformities, moves all extremities symmetrically Neuro: Awake, alert, oriented, normal speech, moves all extremities symmetrically Psych: Pleasant, cooperative Medical Decision Making Medical Decision Making MDM Narrative: 28-year-old male with history of Crohn's disease with perforated bowel 2014 who presents to the emergency department for evaluation 1 week of loose stools which have improved, abdominal pain, abdominal distension, nausea with no vomiting, chills, night sweats, myalgias arthralgias. Vital signs were normal. Abdominal exam revealed diffuse abdominal tenderness with no localizing tenderness, diminished bowel sounds and mild abdominal distension. Following evaluation was ordered: CBC, CMP, ESR, CRP, PT/INR, PTT, lactic acid, lipase, COVID-19, flu, RSV, CT scan of the abdomen pelvis with both oral and IV contrast. Patient was treated with normal saline x1 L, Toradol 15 mg IV and Zofran 4 mg IV. 15:44 My interpretation patient's laboratory evaluation is as follows: CBC was normal. Coags were normal. CMP was normal. CRP was slightly elevated at 0.97 . ESR was normal at 11. CT scan of the abdomen pelvis was consistent with a small-bowel obstruction with a transition zone in the left mid abdomen. I did consult our molded goods embossing press operator, Dr. Houser and he did see the patient here in the emergency department. He recommended Solu-Medrol 20 mg IV q.6, Flagyl 500 mg IV and NG tube placement to decompress the bowel. I also discussed the patient over tiger text with our covering surgeon, Dr. Villatoro who will consult on the patient. He recommended admission to the hospital service I did discuss the patient over tiger text with the covering hospitalist, Dr. Casey the patient is accepted on to the hospital service. Differential Diagnosis Differential diagnosis includes but is not limited to Crohn's flare up, partial bowel obstruction, complete small bowel obstruction, viral syndrome, electrolyte abnormality, anemia Admission/Observation Consideration of admission/observation: Escalation of care including admission/observation considered Consult Healthcare Provider Management of the patient was discussed with: Hospitalist and Head Resident (GI and surgery) Lab Data MDM Lab Attestation statement: I reviewed the patient's lab results. 05/15/23 10:03 05/15/23 10:03 Labs: Lab Results 05/15/23 Range/Units 10:03 WBC 7.1 (4.8-10.8) X10*3/uL RBC 4.97 (4.60-5.80) X10*6/uL Hgb 15.8 (14.0-18.0) g/dl Hct 45.8 (42.0-52.0) % MCV 92.2 (80.0-98.0) fL MCH 31.8 (27.0-33.0) pg MCHC 34.5 (31.0-36.0) g/dl RDW 11.7 (11.0-16.0) % Plt Count 204 (160-400) X10*3/uL MPV 10.7 (9.4-12.4) fL Immature Gran % (Auto) 0.3 (0.0-0.4) % Neut % (Auto) 64.7 (45-73) % Lymph % (Auto) 25.7 (20-40) % [place] % (Auto) 8.2 (2-11) % Eos % (Auto) 1.0 (0-4) % Baso % (Auto) 0.1 (0-2) % Lymph # (Auto) 1.8 (1.2-4.9) X10*3/uL [place] # (Auto) 0.6 (0.1-1.2) X10*3/uL Eos # (Auto) 0.1 (0.0-0.4) X10*3/uL Baso # (Auto) 0.0 (0.0-0.2) X10*3/uL Abs Immat Gran (auto) 0.02 (0.00-0.03) X10*3/uL Absolute Neuts (auto) 4.6 (2.0-8.3) x10*3/uL Absolute Nucleated RBC 0.000 (0.0-0.012) X10*3/uL Nucleated RBC % (auto) 0.0 (0.0-0.2) /100WBC ESR 11 (0-15) MM/HR PT 11.7 (11.1-13.3) SEC INR 1.0 (0.9-1.1) APTT 28.5 (26.0-36.4) SEC Sodium 137 (135-145) mmol/L Potassium 4.3 (3.3-5.1) mmol/L Chloride 104 (96-108) mmol/L Carbon Dioxide 26 (22-29) mmol/L Anion Gap 11 L (12-20) BUN 12 (9-16) mg/dL Creatinine 1.05 (0.5-1.4) mg/dL Estim Creat Clear Calc 113.5 Estimated GFR > 60 Random Glucose 100 (60-115) mg/dL Lactic Acid 0.7 (0.5-2.0) mmol/L Calcium 10.1 (8.4-10.2) mg/dL Total Bilirubin 0.7 (0.0-1.0) mg/dL AST 20 (5-37) U/L ALT 15 (0-40) U/L Alkaline Phosphatase 66 (39-117) U/L C-Reactive Protein 0.97 H (< or = 0.50) mg/dL Total Protein 7.8 (6.5-8.0) g/dL Albumin 4.3 (3.5-5.0) g/dL Lipase 20 (8-78) U/L Influenza Type A (PCR) NEGATIVE (Negative) Influenza Type B (PCR) NEGATIVE (Negative) RSV RNA Qual (PCR) NEGATIVE (Negative) SARS-CoV-2 RNA (RT-PCR) NEGATIVE (Negative) Independent Interpretation I performed an independent interpretation of an: Rhythm Strip Interpretation: My independent interpretation of the patient's one-view chest x-ray after NG placement is as follows: NG tube is in place and stomach, dilated loops of small bowel noted. Radiology Impression Discussion of test interpretation with radiology: I have reviewed the radiologist's reading. Radiologist Impression: EXAMINATION: CT ABDOMEN AND PELVIS WITH CONTRAST GASTROINTESTINAL TRACT: Moderate to large amount of stool remains in the colon. There is marked dilatation of more proximal small bowel seen with loops measuring as large as 5 cm in diameter. The distal ileal loops are all decompressed with a normal-appearing terminal ileum. In the left mid abdomen, there is a suture line seen which is probably the site of obstruction ([id number] and 5:20). A small amount of free fluid is present in the left lateral abdomen ABDOMINAL WALL: No significant hernia is appreciated. LYMPH NODES: No retroperitoneal lymphadenopathy. VASCULAR: Unremarkable. There is a circumaortic left renal vein. PELVIC VISCERA: The prostate and seminal vesicles are unremarkable. OSSEOUS STRUCTURES: Unremarkable. The SI joints appear normal. CT/CT abdomen pelvis w IV con IMPRESSION: 1. Small bowel obstruction with transition zone in the left mid abdomen. 2. Splenomegaly. Fleischner guidelines were followed. Dictated By: Albino Richard MD Independent Historian Clinical information obtained from an independent historian. History obtained from or confirmed by: Parent Chronic Conditions Patient?s care impacted by: Other (Crohn disease) Medications Administered Generic Name Dose Route Start Last Admin Trade Name Freq PRN Reason Stop Dose Admin Sodium Chloride 1,000 mls @ 125 mls/hr 05/15/23 15:02 05/15/23 15:06 Ns IV 05/15/23 23:01 125 mls/hr .Q8H STA Administration Discontinued Medications Generic Name Dose Route Start Last Admin Trade Name Freq PRN Reason Stop Dose Admin Barium Sulfate 900 ml 05/15/23 12:12 05/15/23 12:13 Barium Sulfate Oral (Mocha) 450 Ml Oral.Susp PO 05/15/23 12:13 900 ml ONCE ONE Administration Sodium Chloride 1,000 mls @ 999 mls/hr 05/15/23 09:44 05/15/23 12:21 Ns IV 12/20/23 10:44 Infused .Q1H1M STA Infusion Iohexol 85 ml 05/15/23 12:01 05/15/23 12:03 Iohexol 350 Mg/Ml 100 Ml Infus..Btl IV 05/15/23 12:02 85 ml ONCE ONE Administration Ketorolac Tromethamine 15 mg 05/15/23 09:44 05/15/23 10:12 Ketorolac Tromethamine 15 Mg/Ml Vial IVPUSH 05/15/23 09:45 15 mg ONCE STA Administration Methylprednisolone Sodium Succinate 20 mg 05/15/23 14:50 05/15/23 15:06 Methylprednisolone Sod Succ 40 Mg/Ml Vial IVPUSH 05/15/23 14:51 20 mg ONCE ONE Administration Ondansetron HCl 4 mg 05/15/23 09:44 05/15/23 10:12 Ondansetron Hcl 4 Mg/2 Ml Vial IVPUSH 05/15/23 09:45 4 mg ONCE ONE Administration Discharge Plan Discharge Clinical Impression: Partial small bowel obstruction Crohn's disease Qualifiers: Gastrointestinal tract location: small intestine Digestive disease complication type: with intestinal obstruction Qualified Code(s): K50.012 - Crohn's disease of small intestine with intestinal obstruction Abdominal pain Qualifiers: Abdominal location: generalized Qualified Code(s): R10.84 - Generalized abdominal pain Patient Disposition: Admitted As Inpatient Prescriptions: No Action Inflectra 100 mg Recon Soln IV
[2023-05-15 10:11] LABS: MANUAL DIFF FLAG NO
[2023-05-15] MEDS: Ketorolac Tromethamine 15 MG/ML VIAL IVPUSH (10:12)
[2023-05-15] MEDS: 0.9 % Sodium Chloride 1,000 ML 999 ML IV (10:12)
[2023-05-15] MEDS: ondansetron HCL 4 MG/2 ML VIAL IVPUSH (10:12)
[2023-05-15 10:19] LABS: Basophils Percent Auto 0.1 % (0-2); Eosinophils Absolute Auto 0.1 X10*3/uL (0.0-0.4); Hematocrit 45.8 % (42.0-52.0); Hemoglobin 15.8 g/dl (14.0-18.0); Imm Gran Abs Auto 0.02 X10*3/uL (0.00-0.03); Imm Gran Pct Auto 0.3 % (0.0-0.4); Lymphocytes Absolute Auto 1.8 X10*3/uL (1.2-4.9); Lymphocytes Percent Auto 25.7 % (20-40); Mean Corpuscular HGB Conc 34.5 g/dl (31.0-36.0); Mean Corpuscular Hemoglobin 31.8 pg (27.0-33.0); Mean Corpuscular Volume 92.2 fL (80.0-98.0); Mean Platelet Volume 10.7 fL (9.4-12.4); Monocytes Absolute Auto 0.6 X10*3/uL (0.1-1.2); Monocytes Percent Auto 8.2 % (2-11); Neutrophils Absolute Auto 4.6 x10*3/uL (2.0-8.3); Neutrophils Percent Auto 64.7 % (45-73); Platelet Count 204 X10*3/uL (160-400); Red Blood Count 4.97 X10*6/uL (4.60-5.80); Red Cell Distribution Width 11.7 % (11.0-16.0); White Blood Count 7.1 X10*3/uL (4.8-10.8)
[2023-05-15 10:23] LABS: Prothrombin Time 11.7 SEC (11.1-13.3)
[2023-05-15 10:26] LABS: Partial Thromboplastin Time 28.5 SEC (26.0-36.4)
[2023-05-15 10:28] LABS: Lactic Acid 0.7 mmol/L (0.5-2.0)
--- NOTE | 2023-05-15 10:29 | PC.NURSE ---
1st drink of oral contrast completed
[2023-05-15 10:30] LABS: Alanine Aminotransferase 15 U/L (0-40); Albumin Level 4.3 g/dL (3.5-5.0); Alkaline Phosphatase 66 U/L (39-117); Anion Gap 11 (12-20); Aspartate Amino Transferase 20 U/L (5-37); Bilirubin Total 0.7 mg/dL (0.0-1.0); Blood Urea Nitrogen 12 mg/dL (9-16); C Reactive Protein 0.97 mg/dL (< or = 0.50); Calcium 10.1 mg/dL (8.4-10.2); Carbon Dioxide 26 mmol/L (22-29); Chloride 104 mmol/L (96-108); Creatinine Clr Calc Pharmacy 113.5; Estimated Glomerular Filt Rate > 60; Glucose Random 100 mg/dL (60-115); Lipase 20 U/L (8-78); Potassium 4.3 mmol/L (3.3-5.1); Sodium 137 mmol/L (135-145); Total Protein 7.8 g/dL (6.5-8.0)
[2023-05-15 10:55] LABS: Influenza A PCR NEGATIVE (Negative); Influenza B PCR NEGATIVE (Negative); Resp Syncy Virus RNA Qual PCR NEGATIVE (Negative); SARS COV2 PCR INHOUSE NEGATIVE (Negative)
[2023-05-15 11:03] VITALS: BP 101/58; PULSE 63; RESP 16; O2SAT 100
[2023-05-15 11:06] LABS: Erythrocyte Sedimentation Rate 11 MM/HR (0-15)
[2023-05-15] MEDS: iohexoL 350 MG/ML 100 ML INFUS..BTL 85 ML IV (12:03)
[2023-05-15] MEDS: Barium Sulfate Oral (Mocha) 450 ML ORAL.SUSP 900 ML PO (12:13)
[2023-05-15 14:09] VITALS: BP 105/45; PULSE 63; RESP 16; TEMP 36.6; O2SAT 97
[2023-05-15] MEDS: 0.9 % Sodium Chloride 1,000 ML 125 ML IV (15:06)
[2023-05-15] MEDS: methylPREDNISolone Sod Succ 40 MG/ML VIAL 20 MG IVPUSH ×2 (15:06→21:10)
--- NOTE | 2023-05-15 15:25 | P.HPHOSP_ITS ---
History of Present Illness Date of Service: 05/15/23 Chief Complaint: abd pain 28M PMH crohns presented with abdominal discomfort, bloating. patient has been feeling off for about 2 weeks. poor appetite, early satiety, bloating, chills, nausea without vomitting, no substantial stools. recently remicaid changed to generic. in ED found to have SBO on CT, transition left midabdomen. Review of Systems 2 Review of Systems: Yes all other systems are reviewed and are negative [facility] Medical History (Updated 05/15/23 @ 15:28 by Krishan Linder MD) Crohn's disease Social History Smoked in Last 30 Days: No Use of substances other than those prescribed or required for medical reasons: No Advance Directives: No Meds Allergies Allergy/AdvReac Type Severity Reaction Status Date / Time No Known Allergies Allergy Verified 05/15/23 09:09 Active Medications: Current Medications Sodium Chloride (Ns) 1,000 mls @ 125 mls/hr IV .Q8H STA Stop: 05/15/23 23:01 Last Admin: 05/15/23 15:06 Dose: 125 mls/hr Metronidazole (Flagyl) 500 mg in 100 mls @ 100 mls/hr IV Q12H [facility] Methylprednisolone Sodium Succinate (Methylprednisolone Sod Succ 40 Mg/Ml Vial) 20 mg IVPUSH Q6H [facility] Home Medications Medication Instructions Recorded Confirmed Last Taken Type infliximab-dyyb 100 mg intravenous mg IV 05/15/23 Unknown History solution (Inflectra) Physical Exam 2 Vital Signs and Narrative: Vital Signs: Last Vital Signs Temp 97.9 F 05/15/23 14:09 Pulse 63 05/15/23 14:09 Resp 16 05/15/23 14:09 BP 105/45 L 05/15/23 14:09 Pulse Ox 97 05/15/23 14:09 O2 Del Method Room Air 05/15/23 14:09 BMI result Body Mass Index 25.4 General: AO X 3, no acute distress Resp: CTA bilateral, no accessory muscles used CVS: S1,S2,RRR GI: soft, epigastric tender, non distended Neuro: motor grossly intact, alert Psych: appropriate affect, appropriate insight Results Labs 05/15/23 10:03 05/15/23 10:03 Labs: Laboratory Results - last 24 hr 05/15/23 10:03 MCV 92.2 MCH 31.8 MCHC 34.5 RDW 11.7 Plt Count 204 MPV 10.7 Immature Gran % (Auto) 0.3 Neut % (Auto) 64.7 Lymph % (Auto) 25.7 [place]pson % (Auto) 8.2 Eos % (Auto) 1.0 Baso % (Auto) 0.1 Lymph # (Auto) 1.8 [place]pson # (Auto) 0.6 Eos # (Auto) 0.1 Baso # (Auto) 0.0 Abs Immat Gran (auto) 0.02 Absolute Neuts (auto) 4.6 Absolute Nucleated RBC 0.000 Nucleated RBC % (auto) 0.0 ESR 11 PT 11.7 INR 1.0 APTT 28.5 Anion Gap 11 L Estim Creat Clear Calc 113.5 Estimated GFR > 60 Random Glucose 100 Lactic Acid 0.7 Calcium 10.1 Total Bilirubin 0.7 AST 20 ALT 15 Alkaline Phosphatase 66 C-Reactive Protein 0.97 H Total Protein 7.8 Albumin 4.3 Lipase 20 Influenza Type A (PCR) NEGATIVE Influenza Type B (PCR) NEGATIVE RSV RNA Qual (PCR) NEGATIVE SARS-CoV-2 RNA (RT-PCR) NEGATIVE Imaging Radiologist's Impressions: Impressions Abdomen/Pelvis CT 05/15/23 12:07 IMPRESSION: 1. Small bowel obstruction with transition zone in the left mid abdomen. 2. Splenomegaly. Fleischner guidelines were followed. Assessment and Plan (1) Crohn's disease: Status: Acute Plan 28M PMH crohns presented with abdominal bloating, found to have SBO crohns flare with SBO npo, ngt, ivf, solumedrol, flagyl, gi and surgery following dvt prophylaxis - lovenox full code patient with sbo due to crohns, needs ngt, ivf, expect atleast 2 midnights inpatient until patient tolerating solid diet. Quality Stroke Does the patient have a stroke diagnosis?: No VTE Prior VTE?: No VTE Risk Level:: Medical - low VTE Device Contraindication: Treatment Not Indicated VTE Drug Contraindication: N/A - Med Ordered
--- NOTE | 2023-05-15 15:30 | PHA.MEDREC ---
Pharmacy Consult ? Medication Reconciliation Pharmacy has completed the medication reconciliation. Patient reports no regular medications. Patient get Inflectra infusions. Teresa Pulido, JoeD
[2023-05-15] MEDS: LORazepam 2 MG/ML VIAL 1 MG IVPUSH ×2 (15:47→21:10)
[2023-05-15] MEDS: metroNIDAZOLE/NS 500 MG/100 ML PIGGYBACK 100 MG IV (15:49)
--- NOTE | 2023-05-15 15:56 | PC.NURSE ---
14FR OGT INSERTED WITH NO ISSUE, CONFIRMED PLACEMENT WITH AUSCULTATION, SECURED, WELL TOLERATED. IVF AND ABX RUNNING, MEDICATED FOR ANXIETY PER EMR. PT AWARE OF PLAN FOR CARE, AWAITING BED ASSIGNMENT.
--- NOTE | 2023-05-15 16:30 | PC.NURSE ---
REPORT GIVEN, AWAITING TRANSPORT.
--- NOTE | 2023-05-15 16:31 | P.CNGI_ITS ---
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 Patient noted several days of worsening distention, reduced stooling and gas with diffuse crampy abdominal pain 5/10 in severity worse with food. He denied vomiting. +chills and night sweats, lethargy. He denied sore throat, cough, chest pain, shortness of breath. He denied frequency, urgency or dysuria. He had been established on remicade for many years and seemed to be in clinical remission, however just recently he was changed to biosimilar inflectra and feels this was not as effective in controlling his sx. He denies nsaid use, smoking, foreign travel, sick contacts. Patient's GI doctor is Dr. Jefferson Ma at [facility]. last colonoscopy 2019 with endoscopic remission. Imaging: CT - distended small bowel loops, air-fluid levels, stricture noted, constipation in colon Review of Systems 2 Review of Systems: Constitutional : No Weight loss, ENT/Mouth : No sore throat, No Rhinorrhea Eyes: No Swelling, No Redness Cardiovascular : No Chest Pain, No SOB, No Edema Respiratory : No Cough, No Sputum, No Wheezing Gastrointestinal : see HPI Genitourinary : NO Dysuria, No Urinary Frequency, No Hematuria, No Urgency Musculoskeletal : No joint pain, No Myalgias, No Joint Swelling Skin : No Skin Lesions, No rash Neuro : + Weakness, No Numbness, No Dizziness, No Headache Psych : No Anxiety/Panic, No Depression Heme/Lymph: No Bruising, No Lymphadenopathy Endocrine : No Polyuria, No Polydipsia All other systems reviewed and are negative. [facility] Past Medical History Medical History (Updated 05/15/23 @ 15:51 by Gregory Espinosa MD) Crohn's disease Family History Pertinent family history: no FH of crohns Social History Social History Household Members: None Housing: Apartment Do you presently have visiting nurse or other home services: No Patient Tobacco Use Status: Never used Tobacco Smoked in Last 30 Days: No Use of substances other than those prescribed or required for medical reasons: No Do you feel safe in your current relationship?: Yes Advance Directives: No Do you have thoughts of harming others: None Do you have a plan to hurt others: No Plan Recently lost weight without trying: No Poor oral hygiene: No Meds Allergies Allergy/AdvReac Type Severity Reaction Status Date / Time No Known Allergies Allergy Verified 05/15/23 09:09 Active Medications: Current Medications Enoxaparin Sodium (Enoxaparin Sodium 40 Mg/0.4 Ml Syringe) 40 mg SUBCUT Q24H [facility] Sodium Chloride (Ns) 1,000 mls @ 125 mls/hr IV .Q8H STA Stop: 05/15/23 23:01 Last Admin: 05/15/23 15:06 Dose: 125 mls/hr Metronidazole (Flagyl) 500 mg in 100 mls @ 100 mls/hr IV Q12H [facility] Last Admin: 05/15/23 15:49 Dose: 100 mls/hr Methylprednisolone Sodium Succinate (Methylprednisolone Sod Succ 40 Mg/Ml Vial) 20 mg IVPUSH Q6H [facility] Morphine Sulfate (Morphine Sulfate 2 Mg/Ml Cartridge) 2 mg IVPUSH Q2H PRN; Protocol PRN Reason: moderate pain Sodium Chloride (0.9 % Sodium Chloride Flush 3 Ml Syringe) 3 ml IVFLUSH QSHIFT [facility] Last Admin: 05/15/23 16:24 Dose: Not Given Home Medications Medication Instructions Recorded Confirmed Last Taken Type infliximab-dyyb 100 mg intravenous mg IV 05/15/23 Unknown History solution (Inflectra) Physical Exam 2 Vital Signs: Vital Signs: Last Vital Signs Temp 97.9 F 05/15/23 14:09 Pulse 63 05/15/23 14:09 Resp 16 05/15/23 14:09 BP 105/45 L 05/15/23 14:09 Pulse Ox 97 05/15/23 14:09 O2 Del Method Room Air 05/15/23 14:09 BMI result Body Mass Index 25.4 EXAM: GENERAL: The patient is well developed and nontoxic. VITAL SIGNS:see workflow HEENT: Nonicteric sclerae, PERRLA, EOMI. Oropharynx clear. Moist mucous membranes. Conjunctivae appear well perfused. No thyroid mass. CHEST: Chest wall is nontender. HEART: Regular rate and rhythm without murmurs. LUNGS: Clear to auscultation bilaterally. ABDOMEN: Soft, positive bowel sounds ++, mildly tender mid abdomen, no organomegaly.no flank tenderness SKIN: No rash, no excessive bruising, petechiae, or purpura. NEUROLOGIC: Cranial nerves II-XII intact without motor/sensory deficit. Psych: Appearance: grossly normal Results Labs 05/15/23 10:03 05/15/23 10:03 Labs: Short CBC 05/15/23 Range/Units 10:03 WBC 7.1 (4.8-10.8) X10*3/uL Hgb 15.8 (14.0-18.0) g/dl Hct 45.8 (42.0-52.0) % Plt Count 204 (160-400) X10*3/uL BMP 05/15/23 10:03 Sodium 137 Potassium 4.3 Chloride 104 Carbon Dioxide 26 BUN 12 Creatinine 1.05 Calcium 10.1 Liver Function 05/15/23 Range/Units 10:03 Total Bilirubin 0.7 (0.0-1.0) mg/dL AST 20 (5-37) U/L ALT 15 (0-40) U/L Alkaline Phosphatase 66 (39-117) U/L Albumin 4.3 (3.5-5.0) g/dL Imaging CT scan - abdomen: Attestation: I personally reviewed and interpreted this imaging study as follows: (air fludi levels, dilated small bowel, constipation, stricture noted.) Assessment and Plan (1) Crohn's disease: Qualifiers: Digestive disease complication type: with intestinal obstruction G astrointestinal tract location: small intestine Qualified Code(s): K50.012 - Crohn's disease of small intestine with intestinal obstruction Status: Acute (2) Partial small bowel obstruction: Status: Acute Plan 1/ SBO possibly from biosimilar failure, vs possibility of subacute crohsn and sub optimal control, fibrotic stricture, adhesions, infectious enteritis. PLAN; 1/ solumedrol 20 mg IV q8h for 48 hrs 2/ NGT and decompression, bowel rest, fluids 3/ can add IV flagyl 4/ check c diff and pcr if diarrhea 5/ surgical consult 6/ in longer term, might consider infliximab levels/antibodies and changing biologic , repeat colonoscopy Procedures Date of Service Date of Service: 05/15/23
[2023-05-15 17:48] VITALS: BMI 26.0
[2023-05-15 18:14] VITALS: BP 110/63; PULSE 68; RESP 18; TEMP 36.6; O2SAT 99
[2023-05-15 19:56] VITALS: BP 111/63; PULSE 70; RESP 18; TEMP 36.5; O2SAT 96
[2023-05-15] MEDS: 0.9 % Sodium Chloride Flush 3 ML SYRINGE IVFLUSH (21:11)
--- NOTE | 2023-05-15 22:26 | PC.NURSE ---
Pt c/o anxiety, tiger text message sent to Dr. Robison, 1 mg of IV Ativan ordered and administered at 2109 with good effect. Pt also asking for ice chips, sri text to Dr. Robison and he approved pt to have ice chips.
[2023-05-16] MEDS: methylPREDNISolone Sod Succ 40 MG/ML VIAL 20 MG IVPUSH ×4 (03:34→21:21)
[2023-05-16] MEDS: metroNIDAZOLE/NS 500 MG/100 ML PIGGYBACK 100 MG IV ×2 (03:34→15:26)
[2023-05-16 03:38] VITALS: BP 94/52; PULSE 57; RESP 16; TEMP 36; O2SAT 95
[2023-05-16 06:27] LABS: Hematocrit 39.9 % (42.0-52.0); Hemoglobin 13.8 g/dl (14.0-18.0); Mean Corpuscular HGB Conc 34.6 g/dl (31.0-36.0); Mean Corpuscular Hemoglobin 31.4 pg (27.0-33.0); Mean Corpuscular Volume 90.7 fL (80.0-98.0); Mean Platelet Volume 10.8 fL (9.4-12.4); Platelet Count 171 X10*3/uL (160-400); Red Cell Distribution Width 11.2 % (11.0-16.0); White Blood Count 5.5 X10*3/uL (4.8-10.8)
[2023-05-16 06:49] LABS: Anion Gap 11 (12-20); Blood Urea Nitrogen 12 mg/dL (9-16); Calcium 9.3 mg/dL (8.4-10.2); Carbon Dioxide 23 mmol/L (22-29); Chloride 108 mmol/L (96-108); Creatinine Clr Calc Pharmacy 147.1; Estimated Glomerular Filt Rate > 60; Glucose Fasting 123 mg/dL (60-99); Potassium 4.4 mmol/L (3.3-5.1); Sodium 138 mmol/L (135-145)
--- NOTE | 2023-05-16 06:56 | PC.NURSE ---
Pt had fluids running, NS @ 100 ml/hr. They were running out around 2130 last night (05/15) and there was not another order to renew the fluids. Ackworth text sent to Dr. Robison to ask if he wanted the fluids running, he said no.
[2023-05-16 07:22] VITALS: BP 113/60; PULSE 78; RESP 18; TEMP 36.7; O2SAT 96
--- NOTE | 2023-05-16 08:22 | HO.PM.IMPN ---
Subjective Subjective Date of Service: 05/16/23 Interval History: less bloating, no bm Physical Exam Vital Signs: Vital Signs: Last Vital Signs Temp 98.0 F 05/16/23 07:22 Pulse 78 05/16/23 07:22 Resp 18 05/16/23 07:22 BP 113/60 05/16/23 07:22 Pulse Ox 96 05/16/23 07:22 O2 Del Method Room Air 05/16/23 07:22 BMI result Body Mass Index 26.0 General: AO X 3, no acute distress Resp: CTA bilateral, no accessory muscles used CVS: S1,S2,RRR GI: soft, non tender, non distended Neuro: motor grossly intact, alert Psych: appropriate affect, appropriate insight Objective Data Active Medications Enoxaparin Sodium (Enoxaparin Sodium 40 Mg/0.4 Ml Syringe) 40 mg SUBCUT Q24H [facility] Metronidazole (Flagyl) 500 mg in 100 mls @ 100 mls/hr IV Q12H [facility] Last Infusion: 05/16/23 04:40 Dose: Infused Documented By: OLENA Dextrose/Sodium Chloride (D51/2ns) 1,000 mls @ 80 mls/hr IVCONT .[id number] [facility] Influenza Virus Vaccine (Flu Vacc [id number](6mos Up)/Pf 0.5 Ml Syringe) 0.5 ml IM .ONCE ONE Stop: 05/16/23 09:01 Lorazepam (Lorazepam 2 Mg/Ml Vial) 1 mg IVPUSH ONCE PRN PRN Reason: anxiety/restlessness Last Admin: 05/15/23 21:10 Dose: 1 mg Documented By: OLENA Methylprednisolone Sodium Succinate (Methylprednisolone Sod Succ 40 Mg/Ml Vial) 20 mg IVPUSH Q6H [facility] Last Admin: 05/16/23 03:34 Dose: 20 mg Documented By: OLENA Morphine Sulfate (Morphine Sulfate 2 Mg/Ml Cartridge) 2 mg IVPUSH Q2H PRN; Protocol PRN Reason: moderate pain Sodium Chloride (0.9 % Sodium Chloride Flush 3 Ml Syringe) 3 ml IVFLUSH QSHIFT [facility] Last Admin: 05/15/23 21:11 Dose: 3 ml Documented By: OLENA Labs 05/16/23 06:13 05/16/23 06:13 Labs: Laboratory Results - last 24 hr 05/15/23 05/16/23 10:03 06:13 MCV 92.2 90.7 MCH 31.8 31.4 MCHC 34.5 34.6 RDW 11.7 11.2 Plt Count 204 171 MPV 10.7 10.8 Immature Gran % (Auto) 0.3 Neut % (Auto) 64.7 Lymph % (Auto) 25.7 Logan % (Auto) 8.2 Eos % (Auto) 1.0 Baso % (Auto) 0.1 Lymph # (Auto) 1.8 Logan # (Auto) 0.6 Eos # (Auto) 0.1 Baso # (Auto) 0.0 Abs Immat Gran (auto) 0.02 Absolute Neuts (auto) 4.6 Absolute Nucleated RBC 0.000 0.000 Nucleated RBC % (auto) 0.0 0.0 ESR 11 PT 11.7 INR 1.0 APTT 28.5 Anion Gap 11 L 11 L Estim Creat Clear Calc 113.5 147.1 Estimated GFR > 60 > 60 Random Glucose 100 Fasting Glucose 123 H Lactic Acid 0.7 Calcium 10.1 9.3 D Total Bilirubin 0.7 AST 20 ALT 15 Alkaline Phosphatase 66 C-Reactive Protein 0.97 H Total Protein 7.8 Albumin 4.3 Lipase 20 Influenza Type A (PCR) NEGATIVE Influenza Type B (PCR) NEGATIVE RSV RNA Qual (PCR) NEGATIVE SARS-CoV-2 RNA (RT-PCR) NEGATIVE Assessment and Plan (1) Partial small bowel obstruction: Status: Acute Plan 28M PMH crohns presented with abdominal bloating, found to have SBO crohns flare with SBO some improvement with ngt continue npo, ngt, ivf, solumedrol, flagyl, gi and surgery following dvt prophylaxis - lovenox full code reason for continued hospitalization:awaiting resolution of sbo Quality Stroke Does the patient have a stroke diagnosis?: No VTE Prior VTE?: No VTE Risk Level:: Medical - low VTE Device Contraindication: Treatment Not Indicated VTE Drug Contraindication: N/A - Med Ordered
[2023-05-16] MEDS: Dextrose 5 % and 0.45 % NaCl 1,000 ML 80 ML IVCONT ×2 (08:33→21:49)
[2023-05-16] MEDS: Enoxaparin Sodium 40 MG/0.4 ML SYRINGE SUBCUT (08:33)
[2023-05-16] MEDS: 0.9 % Sodium Chloride Flush 3 ML SYRINGE IVFLUSH ×2 (08:33→21:21)
--- NOTE | 2023-05-16 10:38 | P.CONGS_ITS ---
History of Present Illness Consult details Consult date: 05/16/23 Requesting physician: Krishan Linder Narrative: 28-year-old male with Crohn's disease with history of perforated bowel in 2013 and resection of proximal ileum with primary anastomosis who presented to the ED with complaints of abdominal pain and increasing abd distention. Patient reports he was recently changed to generic infliximab for insurance reasons. Following this, he has had more frequent liquid bowel movements and this progressed to smaller caliber stools over the last week or so with poor appetite. He developed crampy diffuse abdominal pain associated with increasing abdominal bloating over the past few days. He denies vomiting, hematochezia, melena, sick contacts. He presented to the ED where work up included CBC, BMP, LFTs which were WNL and CT scan abd/pelvis which showed marked dilatation of more proximal small bowel with the distal ileal loops decompressed with a normal-appearing terminal ileum. He was admitted to the hospitalist service for the SBO secondary to Crohns flare. NGT was inserted for bowel decompression and he was started on IVF, steroids and flagyl. This morning, he feels improved with near resolution in his abdominal pain and abdominal distention and he is now passing flatus. Review of Systems 2 Constitutional: Constitutional: Denies chills and Denies fever(s) ENT: Denies dizziness Cardiovascular: Cardiovascular: Denies chest pain and Denies dyspnea Respiratory: Respiratory: Denies cough and Denies dyspnea Gastrointestinal: Gastrointestinal: Reports as per HPI Genitourinary: Genitourinary: Denies dysuria Integumentary/Breasts: Skin/Breast: Denies rash Neurologic: Denies dizziness PMF Past Medical History Medical History (Updated 05/15/23 @ 15:51 by Gregory Espinosa MD) Crohn's disease Surgical History Surgical History (Updated 05/16/23 @ 10:55 by Deanna Lazo PA-C) History of resection of small bowel Social History Social History Household Members: None Housing: Apartment Do you presently have visiting nurse or other home services: No Patient Tobacco Use Status: Never used Tobacco Smoked in Last 30 Days: No Use of substances other than those prescribed or required for medical reasons: No Currently Displaying Signs/Symptoms of Drug Intoxication Withdrawal: No Do you feel safe in your current relationship?: Yes Advance Directives: No Do you have thoughts of harming others: None Do you have a plan to hurt others: No Plan Recently lost weight without trying: No Poor oral hygiene: No Meds Allergies Allergy/AdvReac Type Severity Reaction Status Date / Time No Known Allergies Allergy Verified 05/15/23 09:09 Active Medications: Current Medications Enoxaparin Sodium (Enoxaparin Sodium 40 Mg/0.4 Ml Syringe) 40 mg SUBCUT Q24H [facility] Last Admin: 05/16/23 08:33 Dose: 40 mg Metronidazole (Flagyl) 500 mg in 100 mls @ 100 mls/hr IV Q12H [facility] Last Infusion: 05/16/23 04:40 Dose: Infused Dextrose/Sodium Chloride (D51/2ns) 1,000 mls @ 80 mls/hr IVCONT .[id number] [facility] Last Admin: 05/16/23 08:33 Dose: 80 mls/hr Lorazepam (Lorazepam 2 Mg/Ml Vial) 1 mg IVPUSH ONCE PRN PRN Reason: anxiety/restlessness Last Admin: 05/15/23 21:10 Dose: 1 mg Methylprednisolone Sodium Succinate (Methylprednisolone Sod Succ 40 Mg/Ml Vial) 20 mg IVPUSH Q6H [facility] [place] Last Admin: 05/16/23 08:34 Dose: 20 mg Morphine Sulfate (Morphine Sulfate 2 Mg/Ml Cartridge) 2 mg IVPUSH Q2H PRN; Protocol PRN Reason: moderate pain Sodium Chloride (0.9 % Sodium Chloride Flush 3 Ml Syringe) 3 ml IVFLUSH QSHIFT [facility] Last Admin: 05/16/23 08:33 Dose: 3 ml Home Medications Medication Instructions Recorded Confirmed Last Taken Type infliximab-dyyb 100 mg intravenous mg IV 05/15/23 Unknown History solution (Inflectra) Physical Exam 2 Vital Signs: Vital Signs: Last Vital Signs Temp 98.0 F 05/16/23 07:22 Pulse 78 05/16/23 07:22 Resp 18 05/16/23 07:22 BP 113/60 05/16/23 07:22 Pulse Ox 96 05/16/23 07:22 O2 Del Method Room Air 05/16/23 07:22 BMI result Body Mass Index 26.0 Const: General: comfortable, no acute distress and alert O rientation/consciousness: patient oriented x3 Resp: Effort & Inspection: normal respiratory effort GI: Inspection: No distended and Yes scar Palpation (GI): Soft to palpation, nontender, no guarding and not rigid Percussion: Yes normal to percussion Skin: General skin exam: no rashes or lesions noted Neuro: General: patient oriented x3 Results Labs 05/16/23 06:13 05/16/23 06:13 Labs: Abnormal lab results 05/16/23 Range/Units 06:13 RBC 4.40 L (4.60-5.80) X10*6/uL Hgb 13.8 L (14.0-18.0) g/dl Hct 39.9 L (42.0-52.0) % Anion Gap 11 L (12-20) Fasting Glucose 123 H (60-99) mg/dL Short CBC 05/16/23 Range/Units 06:13 WBC 5.5 (4.8-10.8) X10*3/uL Hgb 13.8 L (14.0-18.0) g/dl Hct 39.9 L (42.0-52.0) % Plt Count 171 (160-400) X10*3/uL BMP 05/16/23 06:13 Sodium 138 Potassium 4.4 Chloride 108 Carbon Dioxide 23 BUN 12 Creatinine 0.81 Calcium 9.3 D All other labs normal. Imaging Abdomen CT scan report/results: report reviewed and image reviewed Assessment and Plan (1) Crohn's disease: Qualifiers: Digestive disease complication type: with intestinal obstruction G astrointestinal tract location: small intestine Qualified Code(s): K50.012 - Crohn's disease of small intestine with intestinal obstruction Status: Acute (2) Partial small bowel obstruction: Status: Acute Plan 28 year old male with crohns and hx of small bowel resection who presented with abdominal pain and bloating with CT scan showing dilated proximal small bowel consistent with SBO likely secondary to Crohns flare. He has had symptomatic improvement with supportive treatment of his Crohns flare and now has evidence of GI function. Would recommend continuing conservative measures, no surgical intervention warranted for now. Can clamp NGT for 4 hrs, check residual and remove if output <100cc. Unclamp sooner if develops worsening abd pain, nausea/vomiting. Continue to encourage OOB/ambulation. GI following. Procedures Date of Service Date of Service: 05/16/23
--- NOTE | 2023-05-16 11:04 | PC.NURSE ---
Ng Tube removed as per Dr Linder
[2023-05-16 15:24] VITALS: BP 101/55; PULSE 74; RESP 18; TEMP 36.6; O2SAT 98
--- NOTE | 2023-05-16 16:07 | MHC.CM.PN ---
PT OFF UNIT, CM MET WITH HIS FATHER IN ROOM HE REPORTS THE PT RECENTLY MOVED TO [place] AND IS IN TRANSITION HE SAYS THE PT DOES HAVE PROVIDERS HERE BUT IS ALSO WORKING TO GET SOME IN [place] PT USED NO DME BIOINFORMATICIST AND HAD NO SERVICES PT DOES NOT HAVE A HCP PCP: ROBERTO SANZ PTS FATHER SAYS PT WILL BE ABLE TO STAY LOCAL IF FOLLOW UP WITH [facility] PROVIDERS IS INDICATED HE IS ALSO HOPING THE [facility] GI DEPARTMENT MAY HAVE A RECOMMENDATION FOR A PROVIDER IN [place] PT WILL DC HOME WITH NO SERVICES VIA FAMILY TRANSPORT
[2023-05-16 19:48] VITALS: BP 102/56; PULSE 62; RESP 18; TEMP 36.7; O2SAT 98
[2023-05-16] MEDS: LORazepam 2 MG/ML VIAL 0.5 MG IVPUSH (21:49)
[2023-05-17] MEDS: methylPREDNISolone Sod Succ 40 MG/ML VIAL 20 MG IVPUSH ×2 (03:24→09:13)
[2023-05-17 03:25] VITALS: BP 98/56; PULSE 51; RESP 16; TEMP 36; O2SAT 98
[2023-05-17] MEDS: metroNIDAZOLE/NS 500 MG/100 ML PIGGYBACK 100 MG IV (03:28)
[2023-05-17 07:14] LABS: Hematocrit 40.5 % (42.0-52.0); Hemoglobin 13.6 g/dl (14.0-18.0); Mean Corpuscular HGB Conc 33.6 g/dl (31.0-36.0); Mean Corpuscular Hemoglobin 30.6 pg (27.0-33.0); Mean Platelet Volume 11.2 fL (9.4-12.4); Platelet Count 176 X10*3/uL (160-400); Red Blood Count 4.45 X10*6/uL (4.60-5.80); Red Cell Distribution Width 11.2 % (11.0-16.0); White Blood Count 7.3 X10*3/uL (4.8-10.8)
[2023-05-17 07:19] VITALS: BP 98/54; PULSE 61; RESP 18; TEMP 36.6; O2SAT 99
[2023-05-17 07:28] LABS: Anion Gap 12 (12-20); Blood Urea Nitrogen 10 mg/dL (9-16); Calcium 9.4 mg/dL (8.4-10.2); Carbon Dioxide 25 mmol/L (22-29); Chloride 107 mmol/L (96-108); Creatinine Clr Calc Pharmacy 152.8; Estimated Glomerular Filt Rate > 60; Glucose Fasting 133 mg/dL (60-99); Potassium 4.1 mmol/L (3.3-5.1); Sodium 140 mmol/L (135-145)
--- NOTE | 2023-05-17 08:20 | P.PNGS_ITS ---
Subjective Subjective Date of Service: 05/17/23 Interval history: NGT removed yesterday and started on liquids. Edison bloated after having his entire tray but improved following ambulating and passing flatus. Denies any abd pain, nausea, vomiting. Physical Exam 2 Vital Signs: Vital Signs: Last Vital Signs Temp 97.8 F 05/17/23 07:19 Pulse 61 05/17/23 07:19 Resp 18 05/17/23 07:19 BP 98/54 L 05/17/23 07:19 Pulse Ox 99 05/17/23 07:19 O2 Del Method Room Air 05/17/23 03:25 BMI result Body Mass Index 26.0 Const: General: comfortable, no acute distress and alert O rientation/consciousness: patient oriented x3 Resp: Effort & Inspection: normal respiratory effort GI: Inspection: No distended Palpation (GI): Soft to palpation, nontender, no guarding and not rigid Percussion: Yes normal to percussion Skin: General skin exam: no rashes or lesions noted Neuro: General: patient oriented x3 Objective Data Active Medications Enoxaparin Sodium (Enoxaparin Sodium 40 Mg/0.4 Ml Syringe) 40 mg SUBCUT Q24H [facility] Last Admin: 05/16/23 08:33 Dose: 40 mg Documented By: RAMAKRISHNA Metronidazole (Flagyl) 500 mg in 100 mls @ 100 mls/hr IV Q12H [facility] Last Infusion: 05/17/23 04:35 Dose: Infused Documented By: OLENA Dextrose/Sodium Chloride (D51/2ns) 1,000 mls @ 80 mls/hr IVCONT .[id number] [facility] Last Admin: 05/17/23 07:11 Dose: Not Given Documented By: COTEMA Non-Admin Reason: IV Running Lorazepam (Lorazepam 2 Mg/Ml Vial) 1 mg IVPUSH ONCE PRN PRN Reason: anxiety/restlessness Last Admin: 05/15/23 21:10 Dose: 1 mg Documented By: OLENA Methylprednisolone Sodium Succinate (Methylprednisolone Sod Succ 40 Mg/Ml Vial) 20 mg IVPUSH Q6H [facility] Last Admin: 05/17/23 03:24 Dose: 20 mg Documented By: OLENA Morphine Sulfate (Morphine Sulfate 2 Mg/Ml Cartridge) 2 mg IVPUSH Q2H PRN; Protocol PRN Reason: moderate pain Sodium Chloride (0.9 % Sodium Chloride Flush 3 Ml Syringe) 3 ml IVFLUSH QSHIFT [facility] Last Admin: 05/17/23 07:11 Dose: Not Given Documented By: COTEMA Non-Admin Reason: IV Running Labs 05/17/23 06:17 05/17/23 06:17 Labs: Laboratory Results - last 24 hr 05/16/23 05/17/23 16:54 06:17 MCV 91.0 MCH 30.6 MCHC 33.6 RDW 11.2 Plt Count 176 MPV 11.2 Absolute Nucleated RBC 0.000 Nucleated RBC % (auto) 0.0 Anion Gap 12 Estim Creat Clear Calc 152.8 Estimated GFR > 60 Fasting Glucose 133 H Calcium 9.4 C. difficile Tox B Gene Cancelled Procedures Date of Service Date of Service: 05/17/23 Progress Note: A&P Assessment and plan (1) Partial small bowel obstruction: Status: Acute (2) Crohn's disease: Status: Acute Plan Tolerating clear liquids. Can advance to low residue diet as tolerated. If tolerating, stable for dc from surgical standpoint. Patient comfortable with plan. Time Spent With Patient Time: Total time managing care of this patient today ____ minutes. Quality Stroke Does the patient have a stroke diagnosis?: No VTE Prior VTE?: No VTE Risk Level:: Medical - low VTE Device Contraindication: Treatment Not Indicated VTE Drug Contraindication: N/A - Med Ordered
--- NOTE | 2023-05-17 08:42 | P.DS_ITS ---
DS: Providers Provider Date of Service: 05/17/23 Date of admission: 05/15/23 15:24 Primary care physician: Edmar Palacios MD Consults: 05/15/23 14:48 Consult to Gastroenterology Stat Consulting Provider: Luz Houser Reason for consultation: Crohn's bowel obstruction 05/15/23 14:50 Consult to General Surgery Stat Consulting Provider: [facility] [place] [facility] Reason for consultation: Crohn's, small-bowel obstruct DS: Diagnosis Discharge Diagnosis (1) Partial small bowel obstruction: Status: Acute (2) Crohn's disease: Status: Acute DS: Summary Hospital Course Hospital Course: from initial hpi: 28M PMH crohns presented with abdominal discomfort, bloating. patient has been feeling off for about 2 weeks. poor appetite, early satiety, bloating, chills, nausea without vomitting, no substantial stools. recently remicaid changed to generic. in ED found to have SBO on CT, transition left midabdomen. hospital course: Patient was admitted for acute Crohn's flare complicated by small bowel obstruction. He had NG tube placed and given IV fluids. Was started on methylprednisolone and Flagyl. Symptoms improved, NG tube was removed, patient had bowel movement, diet was advanced to clears and then solids, patient tolerated well and will be discharged home on prolonged prednisone taper and will follow up with Gastroenterology. Time Attestation Discharge coordination time: Greater than 30 minutes Quality: Safe Use of Opioids Does Pt have an Active Cancer Diagnosis on the Problem List?: No Quality: Stroke Does the patient have a stroke diagnosis?: No Physical Exam Vital Signs: Vital Signs: Last Vital Signs Temp 97.8 F 05/17/23 07:19 Pulse 61 05/17/23 07:19 Resp 18 05/17/23 07:19 BP 98/54 L 05/17/23 07:19 Pulse Ox 99 05/17/23 07:19 O2 Del Method Room Air 05/17/23 03:25 BMI result Body Mass Index 26.0 General: AO X 3, no acute distress Resp: CTA bilateral, no accessory muscles used CVS: S1,S2,RRR GI: soft, non tender, non distended Neuro: motor grossly intact, alert Psych: appropriate affect, appropriate insight DS: Data Data Completed and Pending Labs on day of discharge: Laboratory Results - last 24 hr 05/16/23 05/17/23 16:54 06:17 WBC 7.3 RBC 4.45 L Hgb 13.6 L Hct 40.5 L MCV 91.0 MCH 30.6 MCHC 33.6 RDW 11.2 Plt Count 176 MPV 11.2 Absolute Nucleated RBC 0.000 Nucleated RBC % (auto) 0.0 Sodium 140 Potassium 4.1 Chloride 107 Carbon Dioxide 25 Anion Gap 12 BUN 10 Creatinine 0.78 Estim Creat Clear Calc 152.8 Estimated GFR > 60 Fasting Glucose 133 H Calcium 9.4 C. difficile Tox B Gene Cancelled Discharge Plan Discharge Anticipated Discharge Date/Time: 05/17/23 08:34 Patient Disposition: Home, Self-Care Discharge Diagnosis: crohns, sbo Referrals: Edmar Palacios MD [Primary Care Provider] - 1 Week Discharge Medications: New prednisone 5 mg tablet 5 mg PO DAILY Qty: 105 0RF Rx Instructions: 40mg daily for 1 week, then 20mg daily for 7 days, then 10mg daily for 7 days, then 5mg daily for 7 days Continued Inflectra 100 mg Recon Soln IV Diet: low fiber Activity on Discharge: As tolerated Stand Alone Forms: Patient Portal Discharge page Care Plan Goals: recovery Health Concerns: crohns Plan of Treatment: prednisone taper Assessment: see above Patient Instructions: Methylprednisolone (By injection), Metronidazole (By injection), Bowel Obstruction (GEN)
--- NOTE | 2023-05-17 08:43 | P.PNGI_ITS ---
Subjective Subjective Date of Service: 05/17/23 Interval History: doing much better, NGT is out p[assing stools managing PO diet with clears Critical Care Time (minutes): 0 Physical Exam 2 Vital Signs: Vital Signs: Last Vital Signs Temp 97.8 F 05/17/23 07:19 Pulse 61 05/17/23 07:19 Resp 18 05/17/23 07:19 BP 98/54 L 05/17/23 07:19 Pulse Ox 99 05/17/23 07:19 O2 Del Method Room Air 05/17/23 03:25 BMI result Body Mass Index 26.0 EXAM: GENERAL: The patient is well developed and nontoxic. VITAL SIGNS:see workflow HEENT: Nonicteric sclerae, PERRLA, EOMI. Oropharynx clear. Moist mucous membranes. Conjunctivae appear well perfused. No thyroid mass. CHEST: Chest wall is nontender. HEART: Regular rate and rhythm without murmurs. LUNGS: Clear to auscultation bilaterally. ABDOMEN: Soft, positive bowel sounds, nontender, no organomegaly.no flank tenderness SKIN: No rash, no excessive bruising, petechiae, or purpura. NEUROLOGIC: Cranial nerves II-XII intact without motor/sensory deficit. Objective Data Labs 05/17/23 06:17 05/17/23 06:17 Labs: Laboratory Results - last 24 hr 05/16/23 05/17/23 16:54 06:17 WBC 7.3 RBC 4.45 L Hgb 13.6 L Hct 40.5 L MCV 91.0 MCH 30.6 MCHC 33.6 RDW 11.2 Plt Count 176 MPV 11.2 Absolute Nucleated RBC 0.000 Nucleated RBC % (auto) 0.0 Sodium 140 Potassium 4.1 Chloride 107 Carbon Dioxide 25 Anion Gap 12 BUN 10 Creatinine 0.78 Estim Creat Clear Calc 152.8 Estimated GFR > 60 Fasting Glucose 133 H Calcium 9.4 C. difficile Tox B Gene Cancelled Procedures Date of Service Date of Service: 05/17/23 Progress Note: A&P Assessment and plan (1) Crohn's disease: Status: Acute (2) Partial small bowel obstruction: Status: Acute Plan 1/ SBO from stricture possibly infammatory caused by change to generic infliximab, vs fibrotic stricture PLAN: 1/ sterodi taper PO, pred 40 mg initially and reduce over 4 wks 2/ change to humira 3/ check TB quant and hep b,c, awaiting to see if had ab to infliximab 4/ o/p Cte and possible colonoscopy wth dilation Time Spent With Patient Time: Total time managing care of this patient today ____ minutes. Quality Stroke Does the patient have a stroke diagnosis?: No VTE Prior VTE?: No VTE Risk Level:: Medical - low VTE Device Contraindication: Treatment Not Indicated VTE Drug Contraindication: N/A - Med Ordered
[2023-05-17] MEDS: Enoxaparin Sodium 40 MG/0.4 ML SYRINGE SUBCUT (09:13)
[2023-05-17 10:43] LABS: HBS Num1 0.68 mIU/mL (0-7.99); HBsAGNum1 0.29 S/CO (0.00-0.99); Hepatitis B Core Antibody Nonreactive (Nonreactive); Hepatitis B Surface Antigen Negative (Negative); ~HepC Num1 0.11 S/CO (0.00-0.79); ~Hepatitis B Surface Antibody NONREACTIVE (Nonreactive); ~Hepatitis C Antibody Nonreactive (Nonreactive)
[2023-05-17 10:49] LABS: Adenovirus F 40/41 Not Detected (Not Detect.); Astrovirus Not Detected (Not Detect.); Campylobacter Not Detected (Not Detect.); Cryptosporidium Not Detected (Not Detect.); Cyclospora cayetanensis Not Detected (Not Detect.); E. coli EAEC Not Detected (Not Detect.); E. coli EPEC Not Detected (Not Detect.); E. coli ETEC Not Detected (Not Detect.); E. coli STEC Not Detected (Not Detect.); Entamoeba histolytica Not Detected (Not Detect.); Giardia lamblia Not Detected (Not Detect.); Norovirus GI/GII Not Detected (Not Detect.); Plesiomonas shigelloides Not Detected (Not Detect.); Rotavirus A Not Detected (Not Detect.); Salmonella Not Detected (Not Detect.); Sapovirus Not Detected (Not Detect.); Shigella sp./EIEC Not Detected (Not Detect.); Vibrio Not Detected (Not Detect.); Vibrio Cholerae Not Detected (Not Detect.); Yersinia enterocolitica Not Detected (Not Detect.)
--- NOTE | 2023-05-17 11:15 | MHC.CM.PN ---
PT WILL DC HOME TODAY WITH NO SERVICES VIA FAMILY TRANSPORT
[2023-05-19 23:27] LABS: TS Negative Control Passed; TS Panel A 1; TS Panel B 0; TS Positive Control Passed; TSpotTB Negative (Negative)
[2023-05-24 13:34] LABS: Anti-Infliximab Antibody 27 AU (<10); Infliximab Drug Level >50.0 mcg/mL
== END 2023-05-17 12:00 | disposition home or self-care (01) | DRG 387 ==
LOC: HO.ED 09:04 → HO.EDOVER 15:49 → HO.S3 15:59
PROVIDERS: Admitting Provider Internal Medicine; Emergency Provider Emergency Medicine Emergency Medical Services; PCP Internal Medicine; Visit Provider Internal Medicine
DX: K50.012 Crohn's disease of small intestine with intestinal obstruction (principal); Z20.822 Contact with and (suspected) exposure to COVID-19; Z79.620 Long term (current) use of immunosuppressive biologic; Z79.899 Other long term (current) drug therapy
CPT/HCPCS: 0241U; 36415; 71045; 74018; 74177; 80048; 80053; 80230; 83520; 83605; 83631; 83690; 85025; 85027; 85610; 85652; 85730; 86140; 86481; 86704; 86706; 86803; 87340; 87493; 87507; 90686; 99285; J1650; J1836; J1885; J2060; J2405; J2920; Q9967

== ENCOUNTER → 2023-05-15 09:04 | Outpatient (BNV) | payer OTHER, SELFPAY | PROVIDERS: Emergency Provider Emergency Medicine Emergency Medical Services; PCP Internal Medicine; Visit Provider Internal Medicine | DX: K50.012 Crohn's disease of small intestine with intestinal obstruction (principal) | CPT/HCPCS: 99222; 99232; 99239 ==

== ENCOUNTER → 2023-05-15 15:24 | Outpatient (BNV) | payer OTHER, SELFPAY | PROVIDERS: Admitting Provider Internal Medicine; Emergency Provider Emergency Medicine Emergency Medical Services; PCP Internal Medicine; Visit Provider Physician Assistant Surgical | DX: K56.600 Partial intestinal obstruction, unspecified as to cause (principal); K50.012 Crohn's disease of small intestine with intestinal obstruction | CPT/HCPCS: 99222; 99232 ==

== ENCOUNTER → 2023-05-15 15:24 | Outpatient (BNV) | payer OTHER, SELFPAY | PROVIDERS: Admitting Provider Internal Medicine; Emergency Provider Emergency Medicine Emergency Medical Services; PCP Internal Medicine; Visit Provider Internal Medicine Gastroenterology | DX: K50.012 Crohn's disease of small intestine with intestinal obstruction (principal); K56.600 Partial intestinal obstruction, unspecified as to cause | CPT/HCPCS: 99223; 99232 ==

== ENCOUNTER 2023-05-28 10:20 | Outpatient (REF) | payer OTHER, SELFPAY ==
--- NOTE | ~2023-05-28 | CT_ITS ---
EXAMINATION: CT ENTEROGRAPHY ABDOMEN AND PELVIS WITH CONTRAST CLINICAL INFORMATION: History of Crohn disease of small intestine with intestinal obstruction. COMPARISON: CT of abdomen and pelvis from 05/15/2023. TECHNIQUE: Study performed with oral VoLumen (1500 mL) and water to distend the gastrointestinal tract. The patient was injected with 85 mL Omnipaque 350 intravenous contrast which was administered without adverse effect. Coronal and sagittal reformatted images were obtained at the technologist's workstation. This CT examination was performed using dose optimization techniques as appropriate, variously including the following: *Automated exposure control *Adjustment of mA and/or kV according to patient size (this includes techniques or standardized protocols for targeted exams where dose is matched to indication/reason for exam; i.e. extremities or head) *Use of iterative reconstruction technique DLP: 376 mGy-cm FINDINGS: GASTROINTESTINAL FINDINGS: The visualized distal esophagus is normal. Stomach is well distended and has normal wall thickness. No dilated small bowel loops on this follow-up examination. There is suture material along wall of small bowel in the right abdomen and also within the central mesentery. No focal bowel wall thickening. There is no evidence of bowel wall edema, mural stratification, vascular congestion of vasa recta, mesenteric fat stranding or free fluid. No enteroenteric fistula or abscess. The colon is underdistended and grossly normal. The rectoanal region is normal. OTHER FINDINGS: Lung bases are normal. Liver has normal size, contour and attenuation. Gallbladder is normal. Pancreas and spleen are normal. Adrenal glands are normal. Kidneys are normal in size and opacify symmetrically. No renal stones, hydronephrosis or perinephric edema. The ureters and urinary bladder are normal. Abdominal aorta is normal in caliber and its branches are widely patent. No pathologic sized lymph nodes. Prostate gland is unremarkable. No pelvic mass or free fluid. No suspicious osseous lesions. The visualized thoracic and lumbar vertebra have normal density, height and alignment. The sacroiliac joints are normal. CT/CT enterography IMPRESSION: * No imaging evidence of active inflammatory bowel disease. * The small bowel obstruction observed on 05/15/2023 has resolved.
[2023-05-28] MEDS: Sorbitol/Mannit/Xanth Imaging 500 ML LIQUID 1500 ML PO (12:02)
[2023-05-28] MEDS: iohexoL 350 MG/ML 75 ML INFUS..BTL 85 ML IV (12:03)
== END 2023-05-28 10:21 | disposition home or self-care (01) ==
LOC: HO.CT 10:20
PROVIDERS: PCP Internal Medicine; Visit Provider Internal Medicine Gastroenterology
DX: K50.012 Crohn's disease of small intestine with intestinal obstruction (principal); K56.600 Partial intestinal obstruction, unspecified as to cause
CPT/HCPCS: 74177; Q9967

== ENCOUNTER 2023-05-31 08:30 | Outpatient (AMB) | payer OTHER, SELFPAY ==
--- NOTE | 2023-05-31 08:43 | MHC.OFFVIS ---
Intake Vital Signs 05/31/23 08:46 Height 5 ft 11 in Weight 174 lb 2.643 oz BMI 24.3 BP 110/66 Blood Pressure Location Lt brachial Position Sitting Pulse 60 Intake Visit Reasons: 2 week f/u Per Corrina Intake Note: Bradly presents in the office as a 2 week follow up. CC: States that they have questions for the DrTiffany Radial Drill Operator Required: No Allergies No Known Allergies Allergy (Verified 05/15/23 09:09) HPI 2 week f/u Per Corrina HPI Details 28-year-old male with history of Crohn's disease with perforated bowel 2013 and resection of proximal ileum 22 inches/55 cm with ileoileostomy, [id number] functional end-to-end anastomosis on infliximab who I am seeing for f/u RECAP: I had initially seen him 05/18 for evaluation Patient noted several days of worsening distention, reduced stooling and gas with diffuse crampy abdominal pain 5/10 in severity worse with food. He denied vomiting. +chills and night sweats, lethargy. He had been established on remicade for many years and seemed to be in clinical remission, however just recently he was changed to biosimilar inflectra and feels this was not as effective in controlling his sx. He denied nsaid use, smoking, foreign travel, sick contacts. Patient's previous GI doctor was Dr. Jefferson Ma at [facility]. last colonoscopy 2020 with endoscopic remission. He had been on MTX with remicade in the past but stopped few years ago Imaging: CT - distended small bowel loops, air-fluid levels, stricture noted, constipation in colon \ LabS: I checked infliximab level which was not a trough, it was appropriate but he had pos antibiodies INTERIM: DOing well since d/c no pain stools are normal no blood, no diarrhea he had Cte and report pending--to my read some inflammation around the anastomosis EXAM: GENERAL: The patient is well developed and nontoxic. VITAL SIGNS:see workflow HEENT: Nonicteric sclerae, PERRLA, EOMI. Oropharynx clear. Moist mucous membranes. Conjunctivae appear well perfused. No thyroid mass. CHEST: Chest wall is nontender. HEART: Regular rate and rhythm without murmurs. LUNGS: Clear to auscultation bilaterally. ABDOMEN: Soft, positive bowel sounds, nontender, no organomegaly.no flank tenderness SKIN: No rash, no excessive bruising, petechiae, or purpura. NEUROLOGIC: Cranial nerves II-XII intact without motor/sensory deficit. A/P: 1/ Crohns, failed Infliximab, had antibodies Plan: 1/ plan is to start humira now, might take some time to get this, on the pred taper right now,, if needed we will start budesonide to bridge whilst waiting for the humira, 2/ TB test, neg will get Hep B vaccination 3/ await formal CTe --will plan for colonoscopy once gets established on humira [facility] Medical History Crohn's disease Surgical History (Updated 05/31/23 @ 08:46 by JERRY Mendes) Hx of tooth extraction Hx of tonsillectomy Hx of colonoscopy History of esophagogastroduodenoscopy (EGD) History of resection of small bowel Family History (Updated 05/31/23 @ 08:47 by JERRY Mendes) Maternal Grandmother Colon polyp Social History Household Members: None Housing: Apartment Do you presently have visiting nurse or other home services: No Patient Tobacco Use Status: Never used Tobacco service: No Physical Exam Vital Signs: Last Vital Signs Pulse 60 05/31/23 08:46 BP 110/66 05/31/23 08:46 BMI result Body Mass Index 24.3 Assessment & Plan Assessment & Plan (1) Crohn's disease: Code(s): K50.90 - Crohn's disease, unspecified, without complications Qualifiers: Digestive disease complication type: with intestinal obstruction Gastrointestinal tract location: small intestine Qualified Code(s): K50.012 - Crohn's disease of small intestine with intestinal obstruction Plan: A/P: 1/ Crohns, failed Infliximab, had antibodies Plan: 1/ plan is to start humira now, might take some time to get this, on the pred taper right now,, if needed we will start budesonide to bridge whilst waiting for the humira, 2/ TB test, neg will get Hep B vaccination 3/ await formal CTe --will plan for colonoscopy once gets established on humira Medications: New budesonide ER 9 mg (3 x 3 mg) PO QAM 90 ea 1RF Coding Level of Care Code Est Pt Level 4 (36433) Diagnoses Crohn's disease K50.012 Digestive disease complication type: with intestinal obstruction Gastrointestinal tract location: small intestine
[2023-05-31 08:46] VITALS: BP 110/66; PULSE 60; BMI 24.3
== END 2023-05-31 09:27 | disposition home or self-care (01) ==
PROVIDERS: PCP Internal Medicine; Visit Provider Internal Medicine Gastroenterology
DX: Z23 Encounter for immunization (principal); K50.012 Crohn's disease of small intestine with intestinal obstruction
CPT/HCPCS: 99214

== ENCOUNTER → 2023-05-31 08:30 | Outpatient (BNVA) | payer OTHER, SELFPAY | PROVIDERS: PCP Internal Medicine; Visit Provider Internal Medicine Gastroenterology | DX: K50.012 Crohn's disease of small intestine with intestinal obstruction (principal); Z23 Encounter for immunization | CPT/HCPCS: 90471; 90746 ==

== ENCOUNTER 2023-07-22 08:45 | Outpatient (AMB) | payer OTHER, SELFPAY ==
--- NOTE | 2023-07-22 08:53 | MHC.OFFVIS ---
Intake Vital Signs 07/22/23 08:57 Height 5 ft 11 in Weight 172 lb BMI 24.0 BP 108/53 L Blood Pressure Location Lt brachial Position Sitting Pulse 74 Intake Visit Reasons: 6 week follow up Intake Note: Bradly presents in the office as a 6 week follow up. CC: He states that he started humira - the nurse called and sad [facility] will not [facility] it. He is has PTSD about his bowel obstruction - he states that he may have to switch to the generic brand and he feels like he will be fine just something to be questioned. Allergies No Known Allergies Allergy (Verified 07/22/23 08:55) HPI 6 week follow up HPI Details 28-year-old male with history of Crohn's disease with perforated bowel 2013 and resection of proximal ileum 22 inches/55 cm with ileoileostomy, [id number] functional end-to-end anastomosis on infliximab who I am seeing for f/u RECAP: I had initially seen him 05/18 for evaluation Patient noted several days of worsening distention, reduced stooling and gas with diffuse crampy abdominal pain 5/10 in severity worse with food. He denied vomiting. +chills and night sweats, lethargy. He had been established on remicade for many years and seemed to be in clinical remission, however just recently he was changed to biosimilar inflectra and feels this was not as effective in controlling his sx. He denied nsaid use, smoking, foreign travel, sick contacts. Patient's previous GI doctor was Dr. Jefferson Ma at [facility]. last colonoscopy 2020 with endoscopic remission. He had been on MTX with remicade in the past but stopped few years ago Imaging: CT - distended small bowel loops, air-fluid levels, stricture noted, constipation in colon Cte: no obstruction, no active inflammation LabS: I checked infliximab level which was not a trough, it was appropriate but he had pos antibiodies INTERIM: He has been on humira for about a month he is happy with treatment so far, stool is normal no abdominal pain no nausea or vomiting--back to normal diet EXAM: GENERAL: The patient is well developed and nontoxic. VITAL SIGNS:see workflow HEENT: Nonicteric sclerae, PERRLA, EOMI. Oropharynx clear. Moist mucous membranes. Conjunctivae appear well perfused. No thyroid mass. CHEST: Chest wall is nontender. HEART: Regular rate and rhythm without murmurs. LUNGS: Clear to auscultation bilaterally. ABDOMEN: Soft, positive bowel sounds, nontender, no organomegaly.no flank tenderness SKIN: No rash, no excessive bruising, petechiae, or purpura. NEUROLOGIC: Cranial nerves II-XII intact without motor/sensory deficit. A/P: 1/ Crohns, failed Infliximab, had antibodies-now on humira Plan: 1/ cont with humira 2/ TB test, complete hep b vaccine series 3/ recheck labs 4/ colonoscopy is pending, will dilate if stricture noted [facility] Medical History Crohn's disease Surgical History Hx of tooth extraction Hx of tonsillectomy Hx of colonoscopy History of esophagogastroduodenoscopy (EGD) History of resection of small bowel Family History Maternal Grandmother Colon polyp Social History Household Members: None Housing: Apartment Do you presently have visiting nurse or other home services: No Patient Tobacco Use Status: Never used Tobacco service: No Physical Exam Vital Signs: BMI result Body Mass Index 24.0 Assessment & Plan Assessment & Plan (1) Crohn's disease: Code(s): K50.90 - Crohn's disease, unspecified, without complications Qualifiers: Digestive disease complication type: with intestinal obstruction Gastrointestinal tract location: small intestine Qualified Code(s): K50.012 - Crohn's disease of small intestine with intestinal obstruction Plan: A/P: 1/ Crohns, failed Infliximab, had antibodies-now on humira Plan: 1/ cont with humira 2/ TB test, complete hep b vaccine series 3/ recheck labs 4/ colonoscopy Coding Level of Care Code Est Pt Level 4 (16913) Diagnoses Crohn's disease K50.012 Digestive disease complication type: with intestinal obstruction Gastrointestinal tract location: small intestine
[2023-07-22 08:57] VITALS: BP 108/53; PULSE 74; BMI 24.0
== END 2023-07-22 09:20 | disposition home or self-care (01) ==
PROVIDERS: PCP Internal Medicine; Visit Provider Internal Medicine Gastroenterology
DX: K50.012 Crohn's disease of small intestine with intestinal obstruction (principal); Z23 Encounter for immunization
CPT/HCPCS: 99214

== ENCOUNTER 2023-07-22 08:45 | Outpatient (REF) | payer OTHER, SELFPAY ==
[2023-07-22 09:39] LABS: MANUAL DIFF FLAG NO
[2023-07-22 09:52] LABS: Basophils Percent Auto 0.2 % (0-2); Eosinophils Absolute Auto 0.1 X10*3/uL (0.0-0.4); Eosinophils Percent Auto 1.3 % (0-4); Hematocrit 42.4 % (42.0-52.0); Hemoglobin 14.3 g/dl (14.0-18.0); Imm Gran Abs Auto 0.02 X10*3/uL (0.00-0.03); Imm Gran Pct Auto 0.4 % (0.0-0.4); Lymphocytes Absolute Auto 1.7 X10*3/uL (1.2-4.9); Lymphocytes Percent Auto 31.2 % (20-40); Mean Corpuscular HGB Conc 33.7 g/dl (31.0-36.0); Mean Corpuscular Hemoglobin 30.6 pg (27.0-33.0); Mean Corpuscular Volume 90.6 fL (80.0-98.0); Mean Platelet Volume 10.7 fL (9.4-12.4); Monocytes Absolute Auto 0.4 X10*3/uL (0.1-1.2); Monocytes Percent Auto 7.7 % (2-11); Neutrophils Absolute Auto 3.3 x10*3/uL (2.0-8.3); Neutrophils Percent Auto 59.2 % (45-73); Platelet Count 175 X10*3/uL (160-400); Red Blood Count 4.68 X10*6/uL (4.60-5.80); Red Cell Distribution Width 12.4 % (11.0-16.0); White Blood Count 5.6 X10*3/uL (4.8-10.8)
[2023-07-22 10:48] LABS: Alanine Aminotransferase 22 U/L (0-40); Albumin Level 4.3 g/dL (3.5-5.0); Alkaline Phosphatase 62 U/L (39-117); Anion Gap 9 (12-20); Aspartate Amino Transferase 29 U/L (5-37); Bilirubin Total 0.3 mg/dL (0.0-1.0); Blood Urea Nitrogen 16 mg/dL (9-16); C Reactive Protein 0.12 mg/dL (< or = 0.50); Calcium 9.9 mg/dL (8.4-10.2); Carbon Dioxide 27 mmol/L (22-29); Chloride 107 mmol/L (96-108); Estimated Glomerular Filt Rate > 60; Glucose Random 85 mg/dL (60-115); Potassium 4.6 mmol/L (3.3-5.1); Sodium 138 mmol/L (135-145); Total Protein 7.6 g/dL (6.5-8.0)
== END 2023-07-22 08:46 | disposition home or self-care (01) ==
LOC: HO.LAB 08:45
PROVIDERS: PCP Internal Medicine; Visit Provider Internal Medicine Gastroenterology
DX: Z23 Encounter for immunization (principal); K50.012 Crohn's disease of small intestine with intestinal obstruction; K75.81 Nonalcoholic steatohepatitis (NASH)
CPT/HCPCS: 36415; 80053; 85025; 86140; 90471; 90746

== ENCOUNTER 2023-08-22 10:25 | Day surgery (SDC) | payer OTHER, SELFPAY ==
[2023-08-20 10:05] VITALS: BMI 24.0
--- NOTE | 2023-08-21 09:02 | HO.ANESPROP2 ---
Documented by User: Gail Ramos NP 08/21/23 09:04 HPI - Anesthesia Eval Consult details Narrative: 28yo M for Colonoscopy PMFSH Active Problems Active Problems: All Active Problems (Updated 05/25/23 @ 00:03 by Alondra Julien) Crohn's disease (Acute) Past Medical History Medical History Crohn's disease Family History Family History Maternal Grandmother Colon polyp Surgical History Surgical History Hx of tooth extraction Hx of tonsillectomy Hx of colonoscopy History of esophagogastroduodenoscopy (EGD) History of resection of small bowel Social History Social History Household Members: None Housing: Apartment Do you presently have visiting nurse or other home services: No Patient Tobacco Use Status: Current someday Tobacco user Use of substances other than those prescribed or required for medical reasons: Yes Are you DNR?: No Advance Directives: No Advance Directives Information Provided: Yes service: No Meds Allergies Allergy/AdvReac Type Severity Reaction Status Date / Time No Known Allergies Allergy Verified 07/22/23 08:55 Exam Height,Weight and Vital Signs: Height 5 ft 11 in Weight 78.018 kg Pertinent Lab Results Pertinent Lab Results: Laboratory Tests 07/22/23 09:38 WBC 5.6 Hgb 14.3 Hct 42.4 Plt Count 175 Sodium 138 Potassium 4.6 Chloride 107 Carbon Dioxide 27 BUN 16 Creatinine 0.98 Assessment and Plan Assessment Anesthesia Assessment: Chart Reviewed Documented by User: Monisha Vincent MD 08/22/23 13:24 PMFSH Active Problems Active Problems: All Active Problems (Updated 08/22/23 @ 11:46 by Monisha Vincent MD) Crohn's disease (Acute) Past Medical History Medical History Crohn's disease Family History Family History Maternal Grandmother Colon polyp Family history of problems with anesthesia: No Surgical History Surgical History Hx of tooth extraction Hx of tonsillectomy Hx of colonoscopy History of esophagogastroduodenoscopy (EGD) History of resection of small bowel History of Problems with Anesthesia: No Social History Social History Household Members: None Housing: Apartment Do you presently have visiting nurse or other home services: No Patient Tobacco Use Status: Current someday Tobacco user Use of substances other than those prescribed or required for medical reasons: Yes Are you DNR?: No Advance Directives: No Advance Directives Information Provided: Yes service: No Meds Allergies Allergy/AdvReac Type Severity Reaction Status Date / Time No Known Allergies Allergy Verified 07/22/23 08:55 Exam Height,Weight and Vital Signs: Height 5 ft 11 in Weight 78.018 kg Vital Signs Temp Pulse Resp BP Pulse Ox O2 Del Method 08/22/23 11:40 98.2 F 51 16 108/39 L 99 Room Air Pertinent Lab Results Pertinent Lab Results: Laboratory Tests 07/22/23 09:38 WBC 5.6 Hgb 14.3 Hct 42.4 Plt Count 175 Sodium 138 Potassium 4.6 Chloride 107 Carbon Dioxide 27 BUN 16 Creatinine 0.98 Vital Signs Temp Pulse Resp BP Pulse Ox O2 Del Method 08/22/23 11:40 98.2 F 51 16 108/39 L 99 Room Air Airway Mallampati Class: II TM Dist: >3cm Neck ROM: Full Loose/Missing/Broken Teeth: No (Denies broken, loose, missing teeth) Heart: RRR Lungs: CTAB Assessment and Plan Assessment Anesthesia Assessment: Anesthesia Plan Discussed and Chart Reviewed Final Anesthetic Review Family History of Problems with Anesthesia: No History of Problems with Anesthesia: No NPO: Yes ASA Class: II Final Preanesthetic Review: No Changes in Pt Med Stat, Meds/Allgs Chart Reviewed, Consent Obtained/Reviewed and Anes Risks/Benef Reviewed Patient Risk: Low Procedure Risk: Low Assessment/Block/Sedation in SS: Assess/Block/Sedation-SS Anesthetic Plan Anesthetic Plan: MAC: and TIVA Disposition: Standard PACU
[2023-08-22 11:36] VITALS: BMI 25.1
[2023-08-22 11:40] VITALS: BP 108/39; PULSE 51; RESP 16; TEMP 36.8; O2SAT 99
[2023-08-22] MEDS: Lactated Ringers 1,000 ML 100 ML IVCONT (11:47)
--- NOTE | 2023-08-22 12:39 | MHC.SHP ---
Pre-Procedural Eval Section A - 24 Hr Update-Section A only Date of Service: 08/22/23 Section B - Complete if H&P > 30 days Chief Complaint: Crohn's disease, unspecified, without complication Relevant Family History (Specify if Yes): No Relevant Social History: Tobacco Use Present Medications: see Short Stay Collaborative assessment Medical History: Significant History (crohns ) History of Previous Operations: Relevant previous surgery/procedure and date(s) (Hx of tooth extraction Hx of tonsillectomy Hx of colonoscopy History of esophagogastroduodenoscopy (EGD) History of resection of small bowel) Allergies: Allergies Allergy/AdvReac Type Severity Reaction Status Date / Time No Known Allergies Allergy Verified 07/22/23 08:55 Review of Systems Sugical H&P ROS: Negative: Constitution, Cardiovascular, Respiratory, Neurological, Psychiatric, Hem-Onc, Allergic/Immunologic, Gastrointestinal, Genitourinary, Musculoskeletal, Integumentary, Endocrine and Eyes/Ears/Nose/Throat Exam Surgical H&P Exam: Normal: HEENT, Normal: Heart, Normal: Lungs, Normal: Extremities, Normal: Abdomen, Normal: Skin and Normal: Neurological Plan Diagnosis/Plan: Unchanged I have reviewed the history and physical and performed a pertinent physical examination on my patient. No changes have occurred unless specified. Time Spent With Patient Time: Total time managing care of this patient today ____ minutes.
--- NOTE | 2023-08-22 13:54 | P.OP_ITS ---
Operative Note Operative Note Date of Service: 08/22/23 Narrative: Operative Information Procedure Description: Colonoscopy Indication: hx of crohns Anesthesia: MAC COLONOSCOPY Instrument: Olympus variable stiffness pediatric scope 190L Colonoscopy Monitoring: Vital signs and clinical assessment, continuous EKG monitoring, Pulse oximetry, Carbon Dioxide monitoring and blood pressure monitoring were done throughout the procedure. Colon withdrawal time was 15 minutes. Procedure: The patient was placed in the left lateral decubitis position and pre-procedure medications were administered. After a digital rectal examination of the ano-rectum, the video colonoscope was inserted into the rectum and advanced through the colon to the cecum/TI. The colonoscope was slowly withdrawn in a retrograde panoramic fashion and the colon mucosa was carefully examined including a retroflexed view of the rectum. Findings and interventions are described below. Procedure Difficulty: easy Findings: Terminal Ileum-normal, no stricture, mucosa looked very healthy up till 10-15 cm, bx taken Random bx taken from right, transverse, descending, sigmoid, and rectum areas Cecum:normal Ascending Colon: normal Transverse Colon -normal Descending Colon:normal Sigmoid Colon: 4-6 mm sessile polyp removed with cold forceps Rectum: Retroflexion with small internal hemorrhoids seen, grade I Anorectum - normal Intervention: cold forceps Colon preparation: [place] Bowel Preparation Scale Right colon; 2 Transverse colon: 3 Left colon; 3 (0 = Unprepared colon segment with mucosa not seen due to solid stool that cannot be cleared. 1 = Portion of mucosa of the colon segment seen, but other areas of the colon segment not well seen due to staining, residual stool and/or opaque liquid. 2 = Minor amount of residual staining, small fragments of stool and/or opaque liquid, but mucosa of colon segment seen well. 3 = Entire mucosa of colon segment seen well with no residual staining, small fragments of stool or opaque liquid) Impression and Post Procedure Diagnosis: colon polyp internal hemorrhoids Plan: High fiber diet leaflet Avoid straining at stool, epsom salts and sitz bath, anusol supps or cream Repeat Colonoscopy in 1-2 years or earlier if clinically indicated Above findings were reviewed with the patient and relevant handouts were provided if indicated.
[2023-08-22 14:05] VITALS: BP 88/44; PULSE 51; RESP 18; TEMP 36.3; O2SAT 100
[2023-08-22 14:20] VITALS: BP 104/42; PULSE 60; RESP 18; TEMP 36.8; O2SAT 99
== END 2023-08-22 14:35 | disposition home or self-care (01) ==
PROVIDERS: PCP Internal Medicine; Visit Provider Internal Medicine Gastroenterology
PROC: 0DJD8ZZ Inspection of Lower Intestinal Tract, Via Natural or Artificial Opening Endoscopic (ICD-10-PCS; CPT 45378; principal; 2023-08-22 15:50)
DX: K50.012 Crohn's disease of small intestine with intestinal obstruction (principal); K63.5 Polyp of colon; K64.0 First degree hemorrhoids; Z90.49 Acquired absence of other specified parts of digestive tract; Z79.620 Long term (current) use of immunosuppressive biologic; Z72.0 Tobacco use
CPT/HCPCS: 45380; 88305; 88313; J2704; J3301

== ENCOUNTER → 2023-08-22 10:25 | Outpatient (BNV) | payer OTHER, SELFPAY | PROVIDERS: PCP Internal Medicine; Visit Provider Internal Medicine Gastroenterology | DX: K50.90 Crohn's disease, unspecified, without complications (principal); K63.5 Polyp of colon; K64.0 First degree hemorrhoids | CPT/HCPCS: 45380 ==

== ENCOUNTER 2023-11-25 09:18 | Outpatient (REF) | payer OTHER, SELFPAY ==
[2023-11-25 10:29] LABS: Hematocrit 46.2 % (42.0-52.0); Hemoglobin 15.3 g/dl (14.0-18.0); Mean Corpuscular HGB Conc 33.1 g/dl (31.0-36.0); Mean Corpuscular Hemoglobin 30.8 pg (27.0-33.0); Mean Platelet Volume 11.1 fL (9.4-12.4); Platelet Count 167 X10*3/uL (160-400); Red Blood Count 4.97 X10*6/uL (4.60-5.80); Red Cell Distribution Width 12.7 % (11.0-16.0); White Blood Count 4.2 X10*3/uL (4.8-10.8)
[2023-11-25 10:53] LABS: Alanine Aminotransferase 27 U/L (0-40); Albumin Level 4.5 g/dL (3.5-5.0); Alkaline Phosphatase 68 U/L (39-117); Anion Gap 12 (12-20); Aspartate Amino Transferase 35 U/L (5-37); Bilirubin Total 0.4 mg/dL (0.0-1.0); Blood Urea Nitrogen 15 mg/dL (9-16); C Reactive Protein 1.11 mg/dL (< or = 0.50); Calcium 9.9 mg/dL (8.4-10.2); Carbon Dioxide 28 mmol/L (22-29); Chloride 105 mmol/L (96-108); Estimated Glomerular Filt Rate > 60; Glucose Random 102 mg/dL (60-115); Potassium 4.6 mmol/L (3.3-5.1); Sodium 140 mmol/L (135-145); Total Protein 7.8 g/dL (6.5-8.0)
[2023-11-25 11:26] LABS: Atypical Lymph Absolute Manual 0.3 x10*3/uL; Atypical Lymphs Percent Manual 7 % (0-6); Eosinophils Absolute Manual 0.2 X10*3/uL (0.0-0.4); Eosinophils Percent Manual 4 % (0-4); Lymphocytes Absolute Manual 2.4 X10*3/uL (1.2-4.9); Lymphocytes Percent Manual 56 % (20-40); Monocytes Absolute Manual 0.6 X10*3/uL (0.1-1.2); Monocytes Percent Manual 14 % (2-11); Neutrophils Percent Manual 19 % (45-73)
[2023-11-25 11:27] LABS: Band Neutrophils Percent 0 % (3-5); Neutrophils Absolute Manual 0.8 X10*3/uL (2.0-8.3); Platelet Estimate NORMAL (NORMAL); Platelet Morphology Comment NORMAL; RBC Morphology NORMAL
== END 2023-11-25 09:19 | disposition home or self-care (01) ==
LOC: HO.LAB 09:18
PROVIDERS: PCP Internal Medicine; Visit Provider Internal Medicine Gastroenterology
DX: Z23 Encounter for immunization (principal); K50.012 Crohn's disease of small intestine with intestinal obstruction; K75.81 Nonalcoholic steatohepatitis (NASH)
CPT/HCPCS: 36415; 80053; 85007; 85025; 85027; 86140; 90471; 90746

== ENCOUNTER 2023-11-25 09:18 | Outpatient (AMB) | payer OTHER, SELFPAY ==
--- NOTE | 2023-11-25 09:19 | A.OFFVIS_ITS ---
Vital Signs 11/25/23 09:21 Height 5 ft 11 in Weight 180 lb BMI 25.1 BP 109/59 L Blood Pressure Location Lt brachial Position Sitting Pulse 46 L Intake Visit Reasons: 4 month follow up Intake Note: Bradly presents in the office as a 4 month follow up. CC: He states that he came back from a family libertarian Saturday and he is not sure if it is because he had some drinks but he was feeling very unwell and cramping. He is not sure if it is something he ate - once it passed he had normal bowel movements. He did the humira this morning and he is now just listening to his body. Slept well last night and woke up better this morning. Gets anxious because of he eats baby carrots every day and that was the cause of the perforation last time years ago. He thinks he is due for the last Hep B shot. Spine Nurse Required: No Allergies No Known Allergies Allergy (Verified 11/25/23 09:21) HPI HPI 4 month follow up: Details: 28-year-old male with history of Crohn's disease with perforated bowel 2013 and resection of proximal ileum 22 inches/55 cm with ileoileostomy, [id number] functional end-to-end anastomosis on infliximab who I am seeing for f/u RECAP: I had initially seen him 05/18 for evaluation Patient noted several days of worsening distention, reduced stooling and gas with diffuse crampy abdominal pain 5/10 in severity worse with food. He denied vomiting. +chills and night sweats, lethargy. He had been established on remicade for many years and seemed to be in clinical remission, however just recently he was changed to biosimilar inflectra and feels this was not as effective in controlling his sx. He denied nsaid use, smoking, foreign travel, sick contacts. Patient's previous GI doctor was Dr. Jefferson Ma at [facility]. last colonoscopy 2019 with endoscopic remission. He had been on MTX with remicade in the past but stopped few years ago Imaging: CT - distended small bowel loops, air-fluid levels, stricture noted, constipation in colon Cte: no obstruction, no active inflammation LabS: I checked infliximab level which was not a trough, it was appropriate but he had pos antibiodies TB spot--neg Colonoscopy 08/17: normal mucosa, hyperplastic polyp removed INTERIM: He conts with humira he remains happy with treatment, stool is normal no abdominal pain no nausea or vomiting-- eating normal diet he had one episode of nausea and vomiting otherwise being doing well -not sure if it was something he ate, back to normal EXAM: GENERAL: The patient is well developed and nontoxic. VITAL SIGNS:see workflow HEENT: Nonicteric sclerae, PERRLA, EOMI. Oropharynx clear. Moist mucous membranes. Conjunctivae appear well perfused. No thyroid mass. CHEST: Chest wall is nontender. HEART: Regular rate and rhythm without murmurs. LUNGS: Clear to auscultation bilaterally. ABDOMEN: Soft, positive bowel sounds, nontender, no organomegaly.no flank tenderness SKIN: No rash, no excessive bruising, petechiae, or purpura. NEUROLOGIC: Cranial nerves II-XII intact without motor/sensory deficit. A/P: 1/ Crohns, failed Infliximab, had antibodies-changed to humira Plan: 1/ cont with humira 2/ check routine labs, fecal lactoferrin 3/ if ongoing bouts of pain then repeat imaging [facility] Medical History Crohn's disease Surgical History Hx of tooth extraction Hx of tonsillectomy Hx of colonoscopy History of esophagogastroduodenoscopy (EGD) History of resection of small bowel Family History Maternal Grandmother Colon polyp Social History Household Members: None Housing: Apartment Do you presently have visiting nurse or other home services: No Patient Tobacco Use Status: Current someday Tobacco user service: No Physical Exam Vital Signs: BMI result Body Mass Index 25.1 Assessment & Plan Assessment & Plan (1) Crohn's disease: Code(s): K50.90 - Crohn's disease, unspecified, without complications Category: Medical Qualifiers: Digestive disease complication type: with intestinal obstruction Gastrointestinal tract location: small intestine Qualified Code(s): K50.012 - Crohn's disease of small intestine with intestinal obstruction Plan: see above Orders: Orders Complete Blood Count Auto Diff Today K50.012 - Crohn's disease of small intestine with intestinal obstruction C Reactive Protein Today K50.012 - Crohn's disease of small intestine with intestinal obstruction Comprehensive Met. Panel Today K50.012 - Crohn's disease of small intestine with intestinal obstruction, K75.81 - Nonalcoholic steatohepatitis (ROSS) Coding Level of Care Code Est Pt Level 3 (91458) Diagnoses Crohn's disease K50.012 Digestive disease complication type: with intestinal obstruction Gastrointestinal tract location: small intestine
[2023-11-25 09:21] VITALS: BP 109/59; PULSE 46; BMI 25.1
== END 2023-11-25 09:37 | disposition home or self-care (01) ==
PROVIDERS: PCP Internal Medicine; Visit Provider Internal Medicine Gastroenterology
DX: K50.012 Crohn's disease of small intestine with intestinal obstruction (principal); Z23 Encounter for immunization
CPT/HCPCS: 99213

== ENCOUNTER 2024-05-15 08:29 | Outpatient (AMB) | payer OTHER, SELFPAY ==
--- NOTE | 2024-05-15 08:30 | MHC.OFFVIS ---
Intake Visit Reasons: 6 month follow up Intake Note: Patient 6 month follow up for Crohns disease and lab results. Patient denies any GI issuesfor this visit. 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 He denied vomiting. +chills and night sweats, lethargy. He had been established on remicade for many years and seemed to be in clinical remission, however just recently he was changed to biosimilar inflectra and feels this was not as effective in controlling his sx. He denied nsaid use, smoking, foreign travel, sick contacts. Patient's previous GI doctor was Dr. Jefferson Ma at [facility]. last colonoscopy 2019 with endoscopic remission. He had been on MTX with remicade in the past but stopped few years ago Imaging: CT - distended small bowel loops, air-fluid levels, stricture noted, constipation in colon Cte: no obstruction, no active inflammation LabS: I checked infliximab level which was not a trough, it was appropriate but he had pos antibiodies TB spot--neg Colonoscopy 08/17: normal mucosa, hyperplastic polyp removed INTERIM: He feels great no issues he is on the biosimilar of humira no abdominal pain no nausea or vomiting-- eating normal diet EXAM: GENERAL: The patient is well developed and nontoxic. A/P: 1/ Crohns, failed Infliximab, had antibodies-changed to humira, clinically seems to be in remission Plan: 1/ cont with humira biosimilar 2/ check routine labs, fecal lactoferrin now 3/ he is going to transition care to GI in [place] if possible, can see him prn if any issues PFSH Medical History Crohn's disease Surgical History Hx of tooth extraction Hx of tonsillectomy Hx of colonoscopy History of esophagogastroduodenoscopy (EGD) History of resection of small bowel Family History Maternal Grandmother Colon polyp Social History Household Members: None Housing: Apartment Do you presently have visiting nurse or other home services: No Patient Tobacco Use Status: Current someday Tobacco user service: No Telehealth Telehealth Telehealth Platform: [facility] Location of provider rendering services: practice address Location of patient: address on file Patient Identification confirmed using: Name, : Yes Telehealth method: video Patient verbally consented to treatment: Yes Patient verbally consented to billing insurance company: Yes Patient informed of any privacy concerns related to visit: Yes Minutes spent on Phone/Video with Pt.: 7 Assessment & Plan Assessment & Plan (1) Crohn's disease: Code(s): K50.90 - Crohn's disease, unspecified, without complications Category: Medical Qualifiers: Digestive disease complication type: with intestinal obstruction Gastrointestinal tract location: small intestine Qualified Code(s): K50.012 - Crohn's disease of small intestine with intestinal obstruction Plan: as above Orders: Orders Comprehensive Met. Panel Today K50.012 - Crohn's disease of small intestine with intestinal obstruction, K75.81 - Nonalcoholic steatohepatitis (ROSS) Lactoferrin, Fecal, Quant. Today K50.012 - Crohn's disease of small intestine with intestinal obstruction, K51.50 - Left sided colitis without complications T Spot TB Today K50.012 - Crohn's disease of small intestine with intestinal obstruction Complete Blood Count Auto Diff Today K50.012 - Crohn's disease of small intestine with intestinal obstruction C Reactive Protein Today K50.012 - Crohn's disease of small intestine with intestinal obstruction Coding Level of Care Code Tele Est Pt Level 3 (45785) Diagnoses Crohn's disease K50.012 Digestive disease complication type: with intestinal obstruction Gastrointestinal tract location: small intestine
== END 2024-05-15 10:04 | disposition home or self-care (01) ==
LOC: HO.HGI 08:29
PROVIDERS: PCP Internal Medicine; Visit Provider Internal Medicine Gastroenterology
DX: K50.012 Crohn's disease of small intestine with intestinal obstruction (principal); Z98.0 Intestinal bypass and anastomosis status
CPT/HCPCS: 99441

== ENCOUNTER 2024-11-21 08:23 | Outpatient (REF) | payer BC, SELFPAY ==
[2024-11-21 08:40] LABS: MANUAL DIFF FLAG NO
[2024-11-21 09:13] LABS: Basophils Percent Auto 0.4 % (0-2); Eosinophils Absolute Auto 0.1 X10*3/uL (0.0-0.4); Eosinophils Percent Auto 1.2 % (0-4); Hematocrit 40.3 % (42.0-52.0); Hemoglobin 13.5 g/dl (14.0-18.0); Imm Gran Abs Auto 0.02 X10*3/uL (0.00-0.03); Imm Gran Pct Auto 0.2 % (0.0-0.4); Lymphocytes Absolute Auto 1.8 X10*3/uL (1.2-4.9); Lymphocytes Percent Auto 20.9 % (20-40); Mean Corpuscular HGB Conc 33.5 g/dl (31.0-36.0); Mean Corpuscular Hemoglobin 30.5 pg (27.0-33.0); Mean Corpuscular Volume 91.2 fL (80.0-98.0); Monocytes Absolute Auto 0.7 X10*3/uL (0.1-1.2); Monocytes Percent Auto 8.4 % (2-11); Neutrophils Absolute Auto 5.8 x10*3/uL (2.0-8.3); Neutrophils Percent Auto 68.9 % (45-73); Platelet Count 193 X10*3/uL (160-400); Red Blood Count 4.42 X10*6/uL (4.60-5.80); Red Cell Distribution Width 12.2 % (11.0-16.0); White Blood Count 8.4 X10*3/uL (4.8-10.8)
[2024-11-21 10:07] LABS: Albumin Level 4.3 g/dL (3.5-5.0); Alkaline Phosphatase 70 U/L (39-117); Anion Gap 12 (12-20); Aspartate Amino Transferase 31 U/L (5-37); Bilirubin Total 0.4 mg/dL (0.0-1.0); Blood Urea Nitrogen 9 mg/dL (9-16); C Reactive Protein 5.18 mg/dL (< or = 0.50); Calcium 9.7 mg/dL (8.4-10.2); Carbon Dioxide 23 mmol/L (22-29); Chloride 108 mmol/L (96-108); Estimated Glomerular Filt Rate > 60; Ferritin 138 ng/mL (20-250); Glucose Random 102 mg/dL (60-115); Potassium 4.3 mmol/L (3.3-5.1); Sodium 139 mmol/L (135-145); Total Protein 7.6 g/dL (6.5-8.0)
[2024-11-21 10:29] LABS: Alanine Aminotransferase 24 U/L (0-40)
== END 2024-11-21 08:24 | disposition home or self-care (01) ==
LOC: HO.LAB 08:23
PROVIDERS: Visit Provider Internal Medicine Gastroenterology
DX: K50.012 Crohn's disease of small intestine with intestinal obstruction (principal); K75.81 Nonalcoholic steatohepatitis (NASH)
CPT/HCPCS: 80053; 82728; 85025; 86140

== ENCOUNTER 2024-11-23 08:28 | Outpatient (REF) | payer BC, SELFPAY ==
--- OUTSIDE RECORDS SUMMARY | 2024-11-23 08:37 | XMS_ITS | Clinical Summary ---
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 Do not crush or chew. 20 capsule 11/19/2024 11/27/19 Active Active Problems Problem Noted Date Diagnosed Date Crohn's disease 08/17/2020 Encounters Date Type Department Care Team Description 11/19/2024 4:30 PM EDT Office Visit [address] [address] Tanisha Hernandez PA Cough, unspecified type (Primary Dx) 11/18/2024 9:30 AM EDT Office Visit [address] [address] Tanisha Hernandez PA Fever, unspecified fever cause (Primary Dx) 09/23/2024 2:00 PM EDT Office Visit [address] [phone] Tanisha Hernandez PA Allergic conjunctivitis of both eyes (Primary Dx) from Last 3 Months Social History Tobacco Use Types Packs/Day Years Used Date Smoking Tobacco: Never Passive Smoke Exposure: Never Smokeless Tobacco: Never Tobacco Cessation:Counseling Given: Not Answered Sex and Gender Information Value Date Recorded Sex Assigned at Male 09/23/2024 10:53 AM CDT Legal 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 Gender Identity Male 09/23/2024 10:53 AM CDT Sexual Orientation Not on file Last Filed Vital Signs Vital Sign Reading Time Taken Comments Blood Pressure 110/70 11/18/2024 9:55 AM EDT Pulse 94 11/18/2024 9:55 AM EDT Temperature 38.8 C (101.9 F) 11/18/2024 9:55 AM EDT Respiratory Rate 16 11/18/2024 9:55 AM EDT Oxygen Saturation 98% 11/18/2024 9:55 AM EDT Inhaled Oxygen Concentration - - Weight - - Height - - Body Mass Index - - Plan of Treatment Health Maintenance Due Date Last Done Comments Dental Cleaning/Exam 1997 HIV Screening 1997 Hepatitis C Screening 1997 Annual Preventive Exam 2015 Hep B Infection Screening - Triple Screen 2015 Tetanus Diphtheria and Pertu ssis Immunization (1 - Tdap) 2016 Covid-19 Immunization (1 - 2 season) 2024 Hepatitis B Immunization (2 of 3 - 19+ 3-dose series) 03/24/2024 02/25/2024 Influenza Immunization (Seas on Ended) 2025 Pneumococcal: Ped (0 to 5 Yr s) and At-Risk Member (6 to 64 Yrs) Aged Out 01/01/2024 No longer e ligible based on patient's age to complete this topic HIB Immunization Aged Out No longer e ligible based on patient's age to complete this topic HPV Immunization Aged Out No longer e ligible based on patient's age to complete this topic Hepatitis A Immunization Aged Out No longer eligible based on patient's age to complete this topic Polio Immunization Aged Out No longer eligible based on patient's age to complete this topic Varicella Immunization Aged Out No lo nger eligible based on patient's age to complete this topic Procedures Procedure Name Priority Date/Time Associated Diagnosis Comments POCT COVID-19 ANTIGEN QUICKVUE - QUIDEL Routine 11/18/2024 10:24 AM EDT Fever, unspecified fever cause POCT INFLUENZA A/B Routine 11/18/2024 10 :24 AM EDT Fever, unspecified fever cause from Last 3 Months Results * POCT COVID-19 Antigen - Quidel QuickVue ([id number]) (11/18/2024 10:24 AM EDT) POC Covid-19 Antigen Negative Negative COVID 19, POC Quickvue IQC Yes, verified internal control performed correctly. Lot Number [id number] Expiration Date 07/24/25 Swab (Nose) 11/18/2024 10:2 4 AM EDT [facility] POINT OF CARE TEST ORDERABLES F inal Result * POCT Influenza A/B (11/18/2024 10:24 AM EDT) Influenza A/B Assay, POC Negative Negative Influenza A/B Assay, POC IQC Yes, verified internal control performed correctly. Lot Number [id number] Expiration Date 01/22/26 Swab 11/18/2024 10:2 4 AM EDT [facility] POINT OF CARE TEST ORDERABLES F inal Result from Last [id number] [place] [address] [facility] [place] [id number]
[2024-11-23 11:01] LABS: CDiff Gene PCR NEGATIVE (Negative)
[2024-11-23 15:38] LABS: Adenovirus F 40/41 Not Detected (Not Detect.); Astrovirus Not Detected (Not Detect.); Cryptosporidium Not Detected (Not Detect.); Cyclospora cayetanensis Not Detected (Not Detect.); E. coli EAEC Detected (Not Detect.); E. coli EPEC Not Detected (Not Detect.); E. coli ETEC Not Detected (Not Detect.); E. coli STEC Not Detected (Not Detect.); Entamoeba histolytica Not Detected (Not Detect.); Giardia lamblia Not Detected (Not Detect.); Norovirus GI/GII Not Detected (Not Detect.); Plesiomonas shigelloides Not Detected (Not Detect.); Rotavirus A Not Detected (Not Detect.); Salmonella Not Detected (Not Detect.); Sapovirus Not Detected (Not Detect.); Shigella sp./EIEC Not Detected (Not Detect.); Vibrio Not Detected (Not Detect.); Vibrio Cholerae Not Detected (Not Detect.); Yersinia enterocolitica Not Detected (Not Detect.)
[2024-11-23 16:26] LABS: Campylobacter Detected (Not Detect.)
== END 2024-11-23 08:29 | disposition home or self-care (01) ==
LOC: HO.LNP 08:28
PROVIDERS: Visit Provider Internal Medicine Gastroenterology
DX: K50.012 Crohn's disease of small intestine with intestinal obstruction (principal); R19.7 Diarrhea, unspecified
CPT/HCPCS: 83631; 87493; 87507